=== PATIENT | male | born 1955 | race Caucasian/White ===

== ENCOUNTER → 2016-08-09 | Outpatient (CLI) | payer BC | END | disposition home or self-care (01) | LOC: LAB 15:27 | DX: N52.9 Male erectile dysfunction, unspecified (principal) | CPT/HCPCS: 36415; 83001; 83615; 84146; 84402; 84403 ==

== ENCOUNTER → 2016-09-09 | Outpatient (CLI) | payer BC | END | disposition home or self-care (01) | LOC: LAB 13:06 | DX: N52.9 Male erectile dysfunction, unspecified (principal) | CPT/HCPCS: 84402; 84403 ==

== ENCOUNTER → 2018-01-18 | Outpatient (CLI) | payer BC ==
[2018-01-18 07:05] LABS: Basophils # (auto) 0 uL; Eosinophils # (auto) 0.3 uL; Eosinophils % (auto) 5.7 % (0.0-7.0); Hematocrit 47.2 % (41.0-53.0); Hemoglobin 16.5 g/dL (13.5-17.5); Lymphocytes # (auto) 1.3 uL; Lymphocytes % (auto) 28.6 % (10.0-50.0); Mean Corpuscular Hemoglobin 31.7 pg (28.0-32.0); Mean Corpuscular Hgb Conc. 34.9 g/dL (32.0-36.0); Mean Corpuscular Volume 90.9 fL (80.0-100.0); Monocytes # (auto) 0.4 uL; Monocytes % (auto) 9.8 % (0.0-12.0); Neutrophils # (auto) 2.5 uL; Neutrophils % (auto) 54.9 % (37.0-80.0); Nucleated Red Blood Cells % 0.1 %; Platelet Count (auto) 171 10^3/uL (140-450); Red Blood Cells 5.19 10^6/uL (4.5-5.90); Red Cell Distribution Width 13.8 % (11.8-14.3); White Blood Cell 4.6 10^3/uL (4.4-10.8)
[2018-01-18 07:14] LABS: Albumin 3.7 g/dL (3.4-5.0); BUN/Creatinine Ratio 12.1; Bilirubin, Total 0.7 mg/dL (0.2-1.0); Calcium 8.7 mg/dL (8.5-10.1); Potassium 4.1 mmol/L (3.5-5.1); Total Protein 7.1 g/dL (6.4-8.2)
== END | disposition home or self-care (01) ==
LOC: LAB 06:40
PROVIDERS: ATTEND Physician Assistant
DX: Z12.5 Encounter for screening for malignant neoplasm of prostate (principal); E29.1 Testicular hypofunction; D22.9 Melanocytic nevi, unspecified; K21.9 Gastro-esophageal reflux disease without esophagitis
CPT/HCPCS: 36415; 80053; 80061; 84153; 84403; 85025

== ENCOUNTER → 2018-04-17 | Outpatient (CLI) | payer BC | END | disposition home or self-care (01) | LOC: LAB 11:00 | PROVIDERS: ATTEND Physician Assistant | DX: D22.9 Melanocytic nevi, unspecified (principal) ==

== ENCOUNTER → 2019-03-07 | Outpatient (CLI) | payer BC ==
[~2019-03-07] MED LIST: APIX5TAB PO; LEVO500T21 PO
[2019-03-07 14:58] LABS: Urine Bacteria NONE SEEN /hpf (None Seen); Urine Blood Negative /uL (Negative); Urine Mucus FEW (None Seen); Urine Specific Gravity 1.021 (1.001-1.035); Urine WBC <1 /hpf (0 - 3)
[2019-03-07 15:26] LABS: Amylase 45 U/L (25-115); Cholesterol 206 mg/dL (< 200); Lipase 85 U/L (73-393)
[2019-03-07 15:28] LABS: HDL Cholesterol 37 mg/dL (40-59); LDL Cholesterol 142 mg/dL (< 100); Triglycerides 356 mg/dL (< 150)
== END | disposition home or self-care (01) ==
LOC: LAB 14:15
PROVIDERS: ATTEND Internal Medicine
DX: I26.99 Other pulmonary embolism without acute cor pulmonale (principal); E78.5 Hyperlipidemia, unspecified; R13.19 Other dysphagia; K21.9 Gastro-esophageal reflux disease without esophagitis
CPT/HCPCS: 36415; 80061; 81001; 81241; 82150; 82306; 83690; 84153; 85613; 85670; 85705; 85732

== ENCOUNTER → 2019-03-12 | Outpatient (CLI) | payer BC | END | disposition home or self-care (01) | LOC: LAB 14:29 | PROVIDERS: ATTEND Internal Medicine | DX: E78.5 Hyperlipidemia, unspecified (principal); R13.19 Other dysphagia; I26.99 Other pulmonary embolism without acute cor pulmonale | CPT/HCPCS: 82270 ==

== ENCOUNTER → 2019-06-25 | Outpatient (CLI) | payer BC ==
[~2019-06-25] MED LIST changes: +ALBU0.084 NEB; +ALBUAER3 IN; +FLUT1INH6 IN; +MOME200A INH; +RABE20TA5 PO
[2019-06-25 08:35] LABS: Albumin 3.9 g/dL (3.4-5.0); Calcium 9.6 mg/dL (8.5-10.1); Potassium 4.6 mmol/L (3.5-5.1)
[2019-06-25 08:40] LABS: Bilirubin, Total 0.7 mg/dL (0.2-1.0); Total Protein 7.4 g/dL (6.4-8.2)
== END | disposition home or self-care (01) ==
LOC: LAB 07:36
PROVIDERS: ATTEND Internal Medicine
DX: E78.5 Hyperlipidemia, unspecified (principal); E55.9 Vitamin D deficiency, unspecified
CPT/HCPCS: 36415; 80053; 80061

== ENCOUNTER → 2019-06-28 | Day surgery (SDC) | payer BC ==
[2019-06-25 09:11] LABS: Basophils # (auto) 0 uL; Basophils % (auto) 0.6 % (0.0-2.0); Eosinophils # (auto) 0.3 uL; Eosinophils % (auto) 7.2 % (0.0-7.0); Hematocrit 50.8 % (41.0-53.0); Hemoglobin 17.5 g/dL (13.5-17.5); Lymphocytes # (auto) 1.3 uL; Lymphocytes % (auto) 28.6 % (10.0-50.0); Mean Corpuscular Hemoglobin 31.3 pg (28.0-32.0); Mean Corpuscular Hgb Conc. 34.3 g/dL (32.0-36.0); Mean Corpuscular Volume 91.1 fL (80.0-100.0); Monocytes # (auto) 0.5 uL; Monocytes % (auto) 10.2 % (0.0-12.0); Neutrophils # (auto) 2.4 uL; Neutrophils % (auto) 53.4 % (37.0-80.0); Nucleated Red Blood Cells % 0.3 %; Platelet Count (auto) 196 10^3/uL (140-450); Red Blood Cells 5.58 10^6/uL (4.5-5.90); Red Cell Distribution Width 13.3 % (11.8-14.3); White Blood Cell 4.5 10^3/uL (4.4-10.8)
[2019-06-25 09:16] LABS: INR 1.09 (0.9-1.15); Partial Thromboplastin Time 24.6 sec (23.64-32.05)
[~2019-06-28] VITALS: Ht 185.4 cm; Wt 95.3 kg
[~2019-06-28] MED LIST changes: +FLUMAZENIL 0.1 MG/ML INJ 10ML MDV IV ONE; -LEVO500T21 PO; +LIDOCAINE VISCOUS 2% 15ML UD ONE; +NALOXONE HCL 0.4 MG/ML VIAL ONE; +SODIUM CHLORIDE LOCK 10 ML ONE; +diphenhdrAMINE HCL 50 MG/1 ML VL ONE
[2019-06-28] MEDS: MIDAZOLAM HCL 5 MG/ML-1ML VIAL ONE ×3 (09:14→09:27)
[2019-06-28] MEDS: fentaNYL CITRATE 100 MCG/2 ML VL ONE ×3 (09:14→09:27)
[2019-06-28 10:21] VITALS: BP 114/71
== END | disposition home or self-care (01) ==
LOC: GI 08:06
PROVIDERS: ATTEND Internal Medicine Gastroenterology
DX: K63.5 Polyp of colon (principal); K29.50 Unspecified chronic gastritis without bleeding; K44.9 Diaphragmatic hernia without obstruction or gangrene; K64.8 Other hemorrhoids; J44.9 Chronic obstructive pulmonary disease, unspecified; Z79.01 Long term (current) use of anticoagulants; Z79.899 Other long term (current) drug therapy
CPT/HCPCS: 36415; 43239; 45378; 85025; 85610; 85730; 88305; 88342; J1200; J2250; J3010; J7030; 99152

== ENCOUNTER → 2019-07-16 | Outpatient (CLI) | payer BC ==
[~2019-07-16] MED LIST changes: -FLUMAZENIL 0.1 MG/ML INJ 10ML MDV IV ONE; -LIDOCAINE VISCOUS 2% 15ML UD ONE; -NALOXONE HCL 0.4 MG/ML VIAL ONE; -SODIUM CHLORIDE LOCK 10 ML ONE; -diphenhdrAMINE HCL 50 MG/1 ML VL ONE
[2019-07-16 09:26] LABS: Albumin 4.1 g/dL (3.4-5.0); Bilirubin, Direct 0.2 mg/dL (0-0.2); Bilirubin, Total 0.8 mg/dL (0.2-1.0); Total Protein 7.6 g/dL (6.4-8.2)
== END | disposition home or self-care (01) ==
LOC: LAB 08:24
PROVIDERS: ATTEND Internal Medicine
DX: E78.5 Hyperlipidemia, unspecified (principal)
CPT/HCPCS: 36415; 80076

== ENCOUNTER → 2019-08-20 | Outpatient (CLI) | payer BC ==
[2019-08-20 09:08] LABS: Albumin 3.8 g/dL (3.4-5.0)
[2019-08-20 09:14] LABS: Bilirubin, Direct 0.2 mg/dL (0-0.2); Bilirubin, Total 0.7 mg/dL (0.2-1.0); Total Protein 7.5 g/dL (6.4-8.2)
== END | disposition home or self-care (01) ==
LOC: LAB 07:59
PROVIDERS: ATTEND Internal Medicine
DX: E78.5 Hyperlipidemia, unspecified (principal)
CPT/HCPCS: 36415; 80061; 80076

== ENCOUNTER → 2019-10-17 | Outpatient (CLI) | payer BC ==
[2019-10-17 08:36] LABS: Leuteinizing Hormone 1.8 IU/L (1.5-9.3)
[2019-10-17 08:37] LABS: Follicle Stimulating Hormone 2.3 IU/L (1.4-18.1)
== END | disposition home or self-care (01) ==
LOC: LAB 07:32
PROVIDERS: ATTEND Internal Medicine
DX: N52.9 Male erectile dysfunction, unspecified (principal); R53.83 Other fatigue; R79.89 Other specified abnormal findings of blood chemistry
CPT/HCPCS: 36415; 82607; 83001; 83002; 83036; 84144; 84403; 84443

== ENCOUNTER → 2019-10-31 | Outpatient (CLI) | payer BC ==
[2019-10-31 09:31] LABS: Cholesterol 157 mg/dL (< 200); HDL Cholesterol 46 mg/dL (40-59); LDL Cholesterol 96 mg/dL (< 100); Triglycerides 157 mg/dL (< 150)
== END | disposition home or self-care (01) ==
LOC: LAB 07:09
PROVIDERS: ATTEND Internal Medicine
DX: E78.5 Hyperlipidemia, unspecified (principal); I26.99 Other pulmonary embolism without acute cor pulmonale
CPT/HCPCS: 36415; 80061; 81241; 84311; 85302; 85306; 85379

== ENCOUNTER → 2019-12-05 | Outpatient (CLI) | payer BC | END | disposition home or self-care (01) | LOC: LAB 14:38 | PROVIDERS: ATTEND Urology | DX: R97.20 Elevated prostate specific antigen [PSA] (principal) | CPT/HCPCS: 84154 ==

== ENCOUNTER → 2020-01-24 | Outpatient (CLI) | payer BC ==
[2020-01-24 08:10] LABS: Cholesterol 162 mg/dL (< 200); HDL Cholesterol 36 mg/dL (40-59); LDL Cholesterol 121 mg/dL (< 100); Triglycerides 106 mg/dL (< 150)
== END | disposition home or self-care (01) ==
LOC: LAB 07:04
PROVIDERS: ATTEND Internal Medicine
DX: E78.5 Hyperlipidemia, unspecified (principal)
CPT/HCPCS: 36415; 80061

== ENCOUNTER → 2020-01-29 | Outpatient (CLI) | payer BC | END | disposition home or self-care (01) | LOC: LAB 09:27 | PROVIDERS: ATTEND Urology | DX: E29.1 Testicular hypofunction (principal) | CPT/HCPCS: 36415; 84403 ==

== ENCOUNTER → 2020-02-13 | Outpatient (CLI) | payer BC ==
[2020-02-13 08:49] LABS: Albumin 3.8 g/dL (3.4-5.0); Bilirubin, Direct 0.2 mg/dL (0-0.2); Bilirubin, Total 0.8 mg/dL (0.2-1.0)
== END | disposition home or self-care (01) ==
LOC: LAB 07:50
PROVIDERS: ATTEND Internal Medicine
DX: E78.5 Hyperlipidemia, unspecified (principal); R73.03 Prediabetes
CPT/HCPCS: 36415; 80076

== ENCOUNTER → 2020-02-14 | Outpatient (CLI) | payer BC ==
[2020-02-14 09:00] LABS: Eosinophils # (auto) 0.2 10 ^3/uL (0-0.8); Hematocrit 53.5 % (41.0-53.0); Hemoglobin 17.9 g/dL (13.5-17.5); Lymphocytes # (auto) 1.1 10 ^3/uL (0.4-5.4); Mean Corpuscular Hgb Conc. 33.5 g/dL (32.0-36.0); Monocytes # (auto) 0.5 10 ^3/uL (0-1.3); Monocytes % (auto) 8.5 % (0.0-12.0); Platelet Count (auto) 151 10^3/uL (140-450)
[2020-02-14 09:02] LABS: Basophils # (auto) 0.1 10 ^3/uL (0-0.2); Basophils % (auto) 0.9 % (0.0-2.0); Lymphocytes % (auto) 19.3 % (10.0-50.0); Mean Corpuscular Volume 95.3 fL (80.0-100.0); Neutrophils % (auto) 68.3 % (37.0-80.0); Red Blood Cells 5.61 10^6/uL (4.5-5.90); Red Cell Distribution Width 13.8 % (11.8-14.3); White Blood Cell 5.9 10^3/uL (4.4-10.8)
[2020-02-14 09:22] LABS: Albumin 3.9 g/dL (3.4-5.0); Calcium 9.3 mg/dL (8.5-10.1)
[2020-02-14 09:27] LABS: BUN/Creatinine Ratio 10.2; Total Protein 7.3 g/dL (6.4-8.2)
[2020-02-14 09:29] LABS: Free T4 (Free Thyroxine) 1.02 ng/dL (0.89-1.76)
[2020-02-14 09:30] LABS: Free T3 3.49 pg/mL (2.3-4.2); Prostate Specific Antigen 1.91 ng/mL (0.0-4.0)
== END | disposition home or self-care (01) ==
LOC: LAB 08:40
DX: Z12.5 Encounter for screening for malignant neoplasm of prostate (principal); E07.89 Other specified disorders of thyroid; E34.9 Endocrine disorder, unspecified; E29.1 Testicular hypofunction
CPT/HCPCS: 36415; 80053; 80061; 82306; 82607; 82670; 84153; 84402; 84403; 84439; 84443; 84481; 85025; 86376

== ENCOUNTER → 2020-05-05 | Outpatient (CLI) | payer BC ==
[2020-05-05 08:18] LABS: Albumin 3.7 g/dL (3.4-5.0)
[2020-05-05 08:22] LABS: Bilirubin, Direct 0.2 mg/dL (0-0.2); Bilirubin, Total 0.9 mg/dL (0.2-1.0); Total Protein 7.1 g/dL (6.4-8.2)
== END | disposition home or self-care (01) ==
LOC: LAB 07:15
PROVIDERS: ATTEND Internal Medicine
DX: E78.5 Hyperlipidemia, unspecified (principal); R73.03 Prediabetes
CPT/HCPCS: 36415; 80061; 80076; 84403

== ENCOUNTER 2020-05-11 08:14 | Emergency (ER) | payer BC ==
[~2020-05-11] VITALS: Ht 185.4 cm; Wt 99.8 kg
[2020-05-11 08:20] VITALS: BP 149/79
[2020-05-11 09:00] LABS: Basophils # (auto) 0 10 ^3/uL (0-0.2); Basophils % (auto) 0.3 % (0.0-2.0); Eosinophils # (auto) 0.2 10 ^3/uL (0-0.8); Monocytes # (auto) 0.8 10 ^3/uL (0-1.3); Neutrophils # (auto) 4.6 10 ^3/uL (1.6-8.6); White Blood Cell 7.1 10^3/uL (4.4-10.8)
[2020-05-11] MEDS ORDERED: IOHEXOL 350 MG/ML 100ML IJ ONE (09:00)
[2020-05-11 09:02] LABS: Eosinophils % (auto) 3.1 % (0.0-7.0); Hemoglobin 19.6 g/dL (13.5-17.5); Lymphocytes # (auto) 1.4 10 ^3/uL (0.4-5.4); Lymphocytes % (auto) 20.4 % (10.0-50.0); Mean Corpuscular Hemoglobin 31.8 pg (28.0-32.0); Mean Corpuscular Hgb Conc. 34.2 g/dL (32.0-36.0); Monocytes % (auto) 10.8 % (0.0-12.0); Neutrophils % (auto) 65.4 % (37.0-80.0); Nucleated Red Blood Cells % 0.1 %; Platelet Count (auto) 158 10^3/uL (140-450); Red Blood Cells 6.16 10^6/uL (4.5-5.90); Red Cell Distribution Width 13.2 % (11.8-14.3)
[2020-05-11 09:18] LABS: Hematocrit 57.3 % (41.0-53.0)
[2020-05-11 09:25] LABS: Alanine Aminotransferase 33 U/L (16-61); Albumin 3.8 g/dL (3.4-5.0); Anion Gap 5 (5-15); Aspartate Aminotransferase 20 U/L (15-37); BUN/Creatinine Ratio 12.1; Bilirubin, Total 0.8 mg/dL (0.2-1.0); Blood Urea Nitrogen 15 mg/dL (7-18); Calcium 9.2 mg/dL (8.5-10.1); Carbon Dioxide 29 mmol/L (21-32); Chloride 104 mmol/L (98-107); GFR African American 76 mL/min; GFR Non-African American 63 mL/min; Glucose 79 mg/dL (74-106); Sodium 138 mmol/L (136-145); Total Protein 7.3 g/dL (6.4-8.2)
[2020-05-11 09:30] LABS: Alkaline Phosphatase 64 U/L (45-117)
== END 2020-05-11 13:13 | disposition left against medical advice (07) ==
LOC: ER 08:14
DX: R07.81 Pleurodynia (principal); J45.909 Unspecified asthma, uncomplicated; K21.9 Gastro-esophageal reflux disease without esophagitis
CPT/HCPCS: 36415; 71275; 80053; 84484; 85025; 93005; 99285; Q9967

== ENCOUNTER → 2020-06-23 | Outpatient (CLI) | payer BC ==
[2020-06-23 07:29] LABS: Basophils # (auto) 0 10 ^3/uL (0-0.2); Eosinophils # (auto) 0.3 10 ^3/uL (0-0.8); Hemoglobin 18.8 g/dL (13.5-17.5); Lymphocytes # (auto) 1.2 10 ^3/uL (0.4-5.4); Monocytes # (auto) 0.7 10 ^3/uL (0-1.3); Neutrophils # (auto) 3.4 10 ^3/uL (1.6-8.6); Red Cell Distribution Width 14.2 % (11.8-14.3); White Blood Cell 5.7 10^3/uL (4.4-10.8)
[2020-06-23 07:32] LABS: Basophils % (auto) 0.8 % (0.0-2.0); Hematocrit 53.7 % (41.0-53.0); Lymphocytes % (auto) 20.4 % (10.0-50.0); Mean Corpuscular Hemoglobin 32.3 pg (28.0-32.0); Mean Corpuscular Hgb Conc. 35.1 g/dL (32.0-36.0); Mean Corpuscular Volume 92.1 fL (80.0-100.0); Monocytes % (auto) 12.2 % (0.0-12.0); Neutrophils % (auto) 60.6 % (37.0-80.0); Nucleated Red Blood Cells % 0.1 %; Platelet Count (auto) 195 10^3/uL (140-450); Red Blood Cells 5.83 10^6/uL (4.5-5.90)
[2020-06-23 07:43] LABS: Albumin 3.5 g/dL (3.4-5.0)
[2020-06-23 07:48] LABS: Bilirubin, Direct 0.2 mg/dL (0-0.2); Bilirubin, Total 0.9 mg/dL (0.2-1.0); Total Protein 7.2 g/dL (6.4-8.2)
== END | disposition home or self-care (01) ==
LOC: LAB 07:06
PROVIDERS: ATTEND Internal Medicine
DX: E78.5 Hyperlipidemia, unspecified (principal); R73.03 Prediabetes
CPT/HCPCS: 36415; 80061; 80076; 84403; 85025

== ENCOUNTER → 2020-09-21 | Outpatient (CLI) | payer BC ==
[~2020-09-21] MED LIST changes: +RABE20TA19 PO; -RABE20TA5 PO
[2020-09-21 09:30] LABS: Albumin 3.6 g/dL (3.4-5.0)
[2020-09-21 09:35] LABS: Bilirubin, Direct 0.2 mg/dL (0-0.2); Bilirubin, Total 0.9 mg/dL (0.2-1.0)
== END | disposition home or self-care (01) ==
LOC: LAB 07:10
PROVIDERS: ATTEND Urology
DX: E29.1 Testicular hypofunction (principal); N52.9 Male erectile dysfunction, unspecified
CPT/HCPCS: 36415; 80076; 84153; 84403

== ENCOUNTER → 2020-11-23 | Outpatient (CLI) | payer BC ==
[2020-11-23 08:56] LABS: Cholesterol 125 mg/dL (< 200); HDL Cholesterol 36 mg/dL (40-59); LDL Cholesterol 80 mg/dL (< 100); Triglycerides 110 mg/dL (< 150)
== END | disposition home or self-care (01) ==
LOC: LAB 07:20
PROVIDERS: ATTEND Internal Medicine
DX: Z12.11 Encounter for screening for malignant neoplasm of colon (principal); E29.1 Testicular hypofunction; E34.9 Endocrine disorder, unspecified; R73.03 Prediabetes
CPT/HCPCS: 36415; 80061; 82043; 83036; 84403

== ENCOUNTER → 2020-11-27 | Outpatient (CLI) | payer BC | END | disposition home or self-care (01) | LOC: LAB 12:24 | PROVIDERS: ATTEND Internal Medicine | DX: Z12.11 Encounter for screening for malignant neoplasm of colon (principal); E29.1 Testicular hypofunction; E34.9 Endocrine disorder, unspecified; R73.03 Prediabetes | CPT/HCPCS: 82270 ==

== ENCOUNTER → 2020-12-23 | Outpatient (CLI) | payer BC | END | disposition home or self-care (01) | LOC: XYW 08:12 | PROVIDERS: ATTEND Internal Medicine | DX: R06.02 Shortness of breath (principal) | CPT/HCPCS: 93306 ==

== ENCOUNTER → 2021-01-21 | Outpatient (CLI) | payer BC | END | disposition home or self-care (01) | LOC: XY 08:23 | PROVIDERS: ATTEND Internal Medicine | DX: I10 Essential (primary) hypertension (principal); J45.909 Unspecified asthma, uncomplicated; G47.33 Obstructive sleep apnea (adult) (pediatric); R60.0 Localized edema; Z86.711 Personal history of pulmonary embolism | CPT/HCPCS: 78452; 93017; A9500 ==

== ENCOUNTER → 2021-03-26 | Outpatient (CLI) | payer BC ==
[~2021-03-26] MED LIST changes: +ATOR10TA PO; +FLUT0.05 NAS; +MONT5CHW23 PO
[2021-03-26 10:04] LABS: Basophils # (auto) 0 10 ^3/uL (0-0.2); Basophils % (auto) 0.9 % (0.0-2.0); Eosinophils # (auto) 0.2 10 ^3/uL (0-0.8); Mean Corpuscular Volume 92.9 fL (80.0-100.0); Neutrophils # (auto) 3.3 10 ^3/uL (1.6-8.6); Nucleated Red Blood Cells % 0.1 %; White Blood Cell 5.2 10^3/uL (4.4-10.8)
[2021-03-26 10:06] LABS: Eosinophils % (auto) 4.1 % (0.0-7.0); Hematocrit 53.1 % (41.0-53.0); Lymphocytes # (auto) 1.1 10 ^3/uL (0.4-5.4); Lymphocytes % (auto) 21.6 % (10.0-50.0); Mean Corpuscular Hemoglobin 31.6 pg (28.0-32.0); Monocytes # (auto) 0.6 10 ^3/uL (0-1.3); Monocytes % (auto) 10.7 % (0.0-12.0); Neutrophils % (auto) 62.7 % (37.0-80.0); Red Blood Cells 5.71 10^6/uL (4.5-5.90); Red Cell Distribution Width 13.6 % (11.8-14.3)
[2021-03-26 10:31] LABS: INR 1.14 (0.9-1.15); Partial Thromboplastin Time 24.2 sec (23.6-33.0)
[2021-03-26 13:31] LABS: Potassium 4.2 mmol/L (3.5-5.1)
[2021-03-26 13:58] LABS: Albumin 3.7 g/dL (3.4-5.0); BUN/Creatinine Ratio 7.8; Bilirubin, Total 0.8 mg/dL (0.2-1.0); Calcium 9.4 mg/dL (8.5-10.1)
== END | disposition home or self-care (01) ==
LOC: LAB 09:37
PROVIDERS: ATTEND Internal Medicine
DX: Z01.812 Encounter for preprocedural laboratory examination (principal)
CPT/HCPCS: 36415; 80053; 85025; 85610; 85730

== ENCOUNTER 2021-03-29 07:06 | Day surgery (SDC) | payer BC ==
[~2021-03-29] VITALS: Ht 185.4 cm; Wt 99.8 kg
[~2021-03-29 07:06] MED LIST changes: -ALBU0.084 NEB; -APIX5TAB PO; -FLUT1INH6 IN
[2021-03-29] MEDS ORDERED: IODIXANOL 320MG/ML 100ML BTL IV ONE (08:24)
[2021-03-29] MEDS ORDERED: LIDOCAINE 2%HCL (LOCAL ANESTH.) INJ 20ML MDV ONE (08:25)
[2021-03-29] MEDS ORDERED: ANGIOMAX 250 MG VIAL IV ONE (08:53)
[2021-03-29] MEDS ORDERED: MIDAZOLAM HCL 2MG/2ML 2ml VIAL (1mg/ml) ONE ×2 (08:54→09:11)
[2021-03-29] MEDS ORDERED: VERAPAMIL 2.5MG/ML INJ 2ML VIAL IV ONE (08:54)
[2021-03-29] MEDS ORDERED: fentaNYL CITRATE 100 MCG/2 ML VL ONE (08:54)
[2021-03-29] MEDS ORDERED: SODIUM CHL 0.9% 0 ML ONE (08:54)
[2021-03-29] MEDS ORDERED: HEPARIN SODIUM (PORCINE) 5000 UNITS/ML 1ML VIAL ONE (08:54)
[2021-03-29] MEDS ORDERED: ONDANSETRON HCL 4 MG/2 ML VIAL IV PRN (09:45)
[2021-03-29] MEDS ORDERED: HYDROcodone-ACET 5/325MG TAB PO PRN (09:45)
[2021-03-29] MEDS ORDERED: ACETAMINOPHEN 500 MG TAB PO PRN (09:45)
== END 2021-03-29 12:27 | disposition home or self-care (01) ==
LOC: CATH 07:06
PROVIDERS: ATTEND Internal Medicine
DX: R94.39 Abnormal result of other cardiovascular function study (principal); E78.00 Pure hypercholesterolemia, unspecified; J45.909 Unspecified asthma, uncomplicated; I26.99 Other pulmonary embolism without acute cor pulmonale; E78.5 Hyperlipidemia, unspecified; J44.9 Chronic obstructive pulmonary disease, unspecified; Z80.2 Family history of malignant neoplasm of other respiratory and intrathoracic organs; Z20.822 Contact with and (suspected) exposure to COVID-19
CPT/HCPCS: 93458; C1887; C1894; J1644; J2250; J3010; J7030; Q9967; U0003; 99152

== ENCOUNTER → 2021-05-27 | Outpatient (CLI) | payer BC | END | disposition home or self-care (01) | LOC: LAB 10:27 | PROVIDERS: ATTEND Internal Medicine Pulmonary Disease | DX: J44.9 Chronic obstructive pulmonary disease, unspecified (principal) | CPT/HCPCS: 82103 ==

== ENCOUNTER → 2021-07-27 | Outpatient (CLI) | payer BC ==
[2021-07-27 08:53] LABS: Albumin 3.6 g/dL (3.4-5.0); Potassium 3.9 mmol/L (3.5-5.1)
[2021-07-27 08:58] LABS: BUN/Creatinine Ratio 9.4; Bilirubin, Total 0.6 mg/dL (0.2-1.0); Total Protein 6.9 g/dL (6.4-8.2)
== END | disposition home or self-care (01) ==
LOC: LAB 07:01
PROVIDERS: ATTEND Internal Medicine
DX: N18.2 Chronic kidney disease, stage 2 (mild) (principal); R73.03 Prediabetes
CPT/HCPCS: 36415; 80053; 83036

== ENCOUNTER → 2021-10-18 | Outpatient (CLI) | payer BC ==
[2021-10-18 08:07] LABS: Cholesterol 131 mg/dL (< 200); HDL Cholesterol 36 mg/dL (40-59); LDL Cholesterol 83 mg/dL (< 100); Triglycerides 100 mg/dL (< 150)
== END | disposition home or self-care (01) ==
LOC: LAB 06:42
PROVIDERS: ATTEND Internal Medicine
DX: Z00.00 Encounter for general adult medical examination without abnormal findings (principal); E78.5 Hyperlipidemia, unspecified; J44.9 Chronic obstructive pulmonary disease, unspecified; R73.03 Prediabetes
CPT/HCPCS: 36415; 80061; 82043; 83036

== ENCOUNTER → 2021-12-06 | Outpatient (CLI) | payer BC ==
[2021-12-06 08:00] LABS: BUN/Creatinine Ratio 9.9
[2021-12-06 08:33] LABS: Folate (Folic Acid) > 24.00 ng/mL (5.38-24)
== END | disposition home or self-care (01) ==
LOC: LAB 06:35
PROVIDERS: ATTEND Internal Medicine
DX: E11.9 Type 2 diabetes mellitus without complications (principal); I10 Essential (primary) hypertension
CPT/HCPCS: 36415; 80048; 82746; 84155; 84165

== ENCOUNTER → 2021-12-29 | Outpatient (CLI) | payer BC | END | disposition home or self-care (01) | LOC: XY 09:45 | PROVIDERS: ATTEND Podiatrist | DX: I77.9 Disorder of arteries and arterioles, unspecified (principal) | CPT/HCPCS: 93925 ==

== ENCOUNTER → 2022-02-10 | Outpatient (CLI) | payer BC ==
[2022-02-10 08:02] LABS: Albumin 3.6 g/dL (3.4-5.0); Calcium 8.7 mg/dL (8.5-10.1); Potassium 3.7 mmol/L (3.5-5.1)
[2022-02-10 08:08] LABS: BUN/Creatinine Ratio 10.8; Bilirubin, Total 0.9 mg/dL (0.2-1.0); Total Protein 6.7 g/dL (6.4-8.2)
== END | disposition home or self-care (01) ==
LOC: LAB 07:15
PROVIDERS: ATTEND Internal Medicine
DX: E78.5 Hyperlipidemia, unspecified (principal); R73.03 Prediabetes
CPT/HCPCS: 36415; 80053; 80061; 83036

== ENCOUNTER → 2022-08-12 | Outpatient (CLI) | payer BC ==
[2022-08-12 09:25] LABS: Cholesterol 137 mg/dL (< 200); HDL Cholesterol 43 mg/dL (40-59); LDL Cholesterol 91 mg/dL (< 100); Triglycerides 103 mg/dL (< 150)
== END | disposition home or self-care (01) ==
LOC: LAB 07:46
PROVIDERS: ATTEND Internal Medicine
DX: R73.03 Prediabetes (principal); J44.9 Chronic obstructive pulmonary disease, unspecified; E78.5 Hyperlipidemia, unspecified
CPT/HCPCS: 36415; 80061; 82270; 83036; 84153

== ENCOUNTER → 2022-12-08 | Outpatient (CLI) | payer BC ==
[~2022-12-08] MED LIST changes: +MOME1AER3 INH; -MOME200A INH; +MONT5CHW12 PO; -MONT5CHW23 PO
[2022-12-08 08:19] LABS: Cholesterol 114 mg/dL (< 200)
[2022-12-08 08:22] LABS: HDL Cholesterol 37 mg/dL (40-59); LDL Cholesterol 74 mg/dL (< 100); Triglycerides 109 mg/dL (< 150)
== END | disposition home or self-care (01) ==
LOC: LAB 07:42
PROVIDERS: ATTEND Internal Medicine
DX: I10 Essential (primary) hypertension (principal); R73.03 Prediabetes
CPT/HCPCS: 36415; 80061; 83036

== ENCOUNTER → 2023-03-20 | Outpatient (CLI) | payer BC ==
[2023-03-20 10:44] LABS: Anion Gap 7 (5-15); Carbon Dioxide 29 mmol/L (20-30); Chloride 104 mmol/L (98-107); Potassium 4.5 mmol/L (3.5-5.1); Sodium 140 mmol/L (136-145)
[2023-03-20 10:46] LABS: Calcium 9.7 mg/dL (8.5-10.1)
[2023-03-20 10:48] LABS: Creatinine, Urine 42.54 mg/dL (30.0-125.0)
[2023-03-20 10:50] LABS: BUN/Creatinine Ratio 9.8 (10.0-20.0); Blood Urea Nitrogen 12 mg/dL (9-23); Glucose 99 mg/dL (74-106)
[2023-03-20 10:51] LABS: Micro Albumin < 3.0 mg/L (<30.0)
== END | disposition home or self-care (01) ==
LOC: LAB 10:03
PROVIDERS: ATTEND Internal Medicine
DX: R73.03 Prediabetes (principal); E78.5 Hyperlipidemia, unspecified; E34.9 Endocrine disorder, unspecified; J44.9 Chronic obstructive pulmonary disease, unspecified
CPT/HCPCS: 36415; 80048; 82043; 82570; 83036; 84403

== ENCOUNTER → 2023-06-23 | Outpatient (CLI) | payer OTHER ==
[2023-06-23 07:30] LABS: Triglycerides 69 mg/dL (< 150)
[2023-06-23 07:31] LABS: LDL Cholesterol 85 mg/dL (< 100)
[2023-06-23 07:32] LABS: Cholesterol 124 mg/dL (< 200); HDL Cholesterol 36 mg/dL (40-59)
== END | disposition home or self-care (01) ==
LOC: LAB 06:45
PROVIDERS: ATTEND Internal Medicine
DX: N52.9 Male erectile dysfunction, unspecified (principal); E78.5 Hyperlipidemia, unspecified; R73.03 Prediabetes
CPT/HCPCS: 36415; 80061; 84403

== ENCOUNTER → 2024-02-06 | Outpatient (CLI) | payer OTHER ==
[2024-02-06 08:00] LABS: Creatinine, Urine 119.17 mg/dL (30.0-125.0)
[2024-02-06 08:02] LABS: Micro Albumin < 3.0 mg/L (<30.0)
== END | disposition home or self-care (01) ==
LOC: LAB 07:05
PROVIDERS: ATTEND Internal Medicine
DX: R73.03 Prediabetes (principal); E04.1 Nontoxic single thyroid nodule; Z79.899 Other long term (current) drug therapy
CPT/HCPCS: 36415; 82043; 82306; 82570; 83036; 84153; 84443

== ENCOUNTER 2024-04-05 10:05 | Day surgery (SDC) | payer OTHER ==
[2024-04-04 07:31] LABS: Alanine Aminotransferase 26 U/L (7-40); Albumin 4.7 g/dL (3.2-4.8); Alkaline Phosphatase 84 U/L (46-116); Anion Gap 6 (5-15); Aspartate Aminotransferase 13 U/L (13-40); BUN/Creatinine Ratio 11.8 (10.0-20.0); Bilirubin, Total 0.6 mg/dL (0.2-1.0); Blood Urea Nitrogen 14 mg/dL (9-23); Calcium 9.8 mg/dL (8.7-10.4); Carbon Dioxide 28 mmol/L (20-31); Chloride 107 mmol/L (98-107); Glucose 99 mg/dL (74-106); Sodium 141 mmol/L (136-145); Total Protein 7.2 g/dL (5.7-8.2)
[2024-04-04 07:34] LABS: INR 1.1 (0.9-1.15); Partial Thromboplastin Time 25.1 SEC (24.5-34.5); Prothrombin Time 11.6 sec (9.3-11.8)
[2024-04-04 07:40] LABS: Basophils # (auto) 0 10 ^3/uL (0-0.2); Basophils % (auto) 0.6 % (0.0-2.0); Eosinophils # (auto) 0.2 10 ^3/uL (0-0.8); Eosinophils % (auto) 3.2 % (0.0-7.0); Hematocrit 46.2 % (41.0-53.0); Lymphocytes # (auto) 1.5 10 ^3/uL (0.4-5.4); Lymphocytes % (auto) 20.5 % (10.0-50.0); Mean Corpuscular Hemoglobin 31.1 pg (28.0-32.0); Mean Corpuscular Hgb Conc. 34.7 g/dL (32.0-36.0); Mean Corpuscular Volume 89.6 fL (80.0-100.0); Monocytes # (auto) 0.6 10 ^3/uL (0-1.3); Monocytes % (auto) 7.9 % (0.0-12.0); Neutrophils # (auto) 5.1 10 ^3/uL (1.6-8.6); Neutrophils % (auto) 67.8 % (37.0-80.0); Nucleated Red Blood Cells % 0.1 %; Platelet Count (auto) 160 10^3/uL (140-450); Red Blood Cells 5.16 10^6/uL (4.5-5.90); Red Cell Distribution Width 15.9 % (11.8-14.3); White Blood Cell 7.6 10^3/uL (4.4-10.8)
[~2024-04-05] VITALS: Ht 185.4 cm; Wt 102.1 kg
[~2024-04-05 10:05] MED LIST changes: -ATOR10TA PO; +ATOR20TA50 PO; +FLUT1AER17 IN; +LOSA100T25 PO; -MOME1AER3 INH
[2024-04-05] MEDS ORDERED: LIDOCAINE VISCOUS 2% 15ML UD ONE (10:40)
[2024-04-05] MEDS ORDERED: MIDAZOLAM HCL 5 MG/ML-1ML VIAL ONE (10:41)
[2024-04-05] MEDS ORDERED: SODIUM CHLORIDE LOCK 0 ML ONE (10:41)
[2024-04-05] MEDS ORDERED: diphenhdrAMINE HCL 50 MG/1 ML VL ONE (10:41)
[2024-04-05] MEDS ORDERED: fentaNYL CITRATE 100 MCG/2 ML VL ONE ×2 (10:41→11:51)
[2024-04-05] MEDS ORDERED: ONDANSETRON HCL 4 MG/2 ML VIAL IV ONE (11:45)
[2024-04-05] MEDS: BENZOCAINE (DENTAL)20% 1 SPR SPRAY MT ONE (11:50)
[2024-04-05] MEDS ORDERED: KETAMINE 50mg/ML 1ml syringe ONE (11:51)
[2024-04-05] MEDS ORDERED: MIDAZOLAM HCL 2MG/2ML 2ml VIAL (1mg/ml) ONE (11:51)
[2024-04-05 12:09] VITALS: PULSE 66; RESP 9; O2SAT 100
[2024-04-05] MEDS ORDERED: PROPOFOL 10 MG/ML 20 ML IV ONE (12:09)
[2024-04-05 12:10] VITALS: TEMP 97.6
[2024-04-05] MEDS ORDERED: ONDANSETRON HCL 4 MG/2 ML VIAL ONE (12:12)
--- NOTE | 2024-04-05 12:19 | DVHOP2 ---
Operative Report DATE OF OPERATION: 04/05/24 PROCEDURE: Upper Endoscopy with biopsy, snare polypectomy and dilate esophagus unguided. PREOPERATIVE INDICATION: The patient is a 68 -year-old male undergoing endoscopy for oropharyngeal dysphagia, history of hiatal hernia and gastric polyps POSTOPERATIVE DIAGNOSES: 1. 3 cm sliding-type hiatal hernia with slightly irregular squamocolumnar junction minimal grade a erosive esophagitis dilated with Allen number 48 2. Mild antral gastritis 3. Two less than 1 cm benign-appearing gastric polyps were seen and removed via cold snare polypectomy PROCEDURE PERFORMED BY: Virginia Lopez GI NURSE: Ty SCOPE: Olympus videoendoscope. ASA CLASS: 2. PREOPERATIVE MEDICATIONS: Dr. Cynthia Hardin PROCEDURE IN DETAIL: After obtaining an informed consent, the patient was placed on left lateral decubitus position. The patient was then sedated with the above medications. A bite block was placed between his teeth. The endoscope was then passed through the oropharynx, into the esophagus, and through the stomach and pylorus up to the second and third part of the duodenum. The endoscope was then withdrawn. The 2nd and 3rd part of the duodenal in the duodenal bulb were normal. The pre- pyloric area and antrum showed mild antral gastritis. On retroflexion the fundus cardia and angularis were normal. Duodenal and gastric biopsies were obtained. The endoscope was then withdrawn into the distal esophagus where the patient had a 3-4 cm sliding-type hiatal hernia with grade a erosive esophagitis. The remaining distal and proximal esophagus and oropharynx were unremarkable. The endoscope was then withdrawn. A Allen dilator number 48 was passed through the distal esophagus with no significant resistance. Repeat endoscopy confirmed adequate dilatation with minimal mucosal oozing at the GE junction. GE junction biopsies were obtained. In the cardia of the stomach there were two less than 1 cm benign-appearing gastric polyps that were seen and removed by cold snare polypectomy and the specimens were retrieved. The patient tolerated the procedure well without difficulty. COMPLICATIONS : None SPECIMENS: Duodenal biopsies Gastric biopsies GE junction biopsies Gastric polyps DISPOSITION: Stable D/C to home PLAN: 1. Await for biopsy result 2. Will place pt on Protonix 40 mg p.o. daily 3. Resume GI soft diet advance as tolerated 4. Hold aspirin NSAIDs blood thinners for five days 5. Outpatient follow up with me in 4-6 weeks to review results and discuss further management VIRGINIA LOPEZ MD Apr 05, 2024 12:18
[2024-04-05 12:40] VITALS: BP 129/75; PULSE 65; RESP 12; O2SAT 96
[2024-04-26] MEDS ORDERED: RIV20T PO (08:28)
== END 2024-04-05 12:51 | disposition home or self-care (01) ==
LOC: GI 10:05
PROVIDERS: ATTEND Internal Medicine Gastroenterology
DX: R13.12 Dysphagia, oropharyngeal phase (principal); K31.7 Polyp of stomach and duodenum; K44.9 Diaphragmatic hernia without obstruction or gangrene; K29.50 Unspecified chronic gastritis without bleeding; I10 Essential (primary) hypertension; J44.9 Chronic obstructive pulmonary disease, unspecified; Z86.711 Personal history of pulmonary embolism
CPT/HCPCS: 36415; 43239; 43251; 43450; 80053; 85025; 85610; 85730; 88305; 88312; 88342; J2250; J2405; J2704; J3010; J7030

== ENCOUNTER 2024-04-24 17:14 | Inpatient (IN) | payer OTHER ==
[~2024-04-24] VITALS: Ht 185.4 cm; Wt 105.7 kg
[~2024-04-24 17:14] MED LIST changes: -CEPH500C PO; -DOXY-267 PO; -EZET-10; -IBUP1TAB5 PO
--- NOTE | 2024-04-24 17:42 | ED.PDOC ---
SOB-HPI HPI Comments HPI:HPI: Poor Historian. 68-year-old male presents with a chief complaint of SOB x onset Monday. Patient mentions that he went to Urgent Care on Monday and had a chest x-ray and was told that "I have collapsed lungs". Patient reports that sent him home and told him to follow-up with Dr. Whiting his primary care doctor. Dr. Whiting scheduled a CT Angiogram that was performed today, 04/24/2024, that resulted in a critical finding that he had Bilateral Pulmonary Emboli. Patient reports that Dr. Whiting instructed him to go to the ER. Patient right now states that he has no chest pain, but does feel "like I can't catch my breath". Patient is able to speak in full sentences. Patient denies any usage of blood thinners. PMHx: HTN, COPD, Asthma, GERD, PE PSHx: None Allergies: Food Allergies Initial Vital Signs: BP: 155/77 HR: 81 Temp: 99.4F SpO2: 96% RR: 18 REVIEW OF SYSTEMS: CONSTITUTIONAL: Denies acute: fever, diaphoresis, chills, HEAD: Denies acute: headache, photophobia Eyes: Denies acute: Double vision, vision loss, eye pain, eye discharge. EARS: Denies acute: tinnitus, hearing loss, ear discharge, ear pain, THROAT: Denies acute: sore throat, swelling, difficulty swallowing , pain with swallowing, change in voice. NECK: Denies acute: neck pain, neck swelling, stiff neck. HEART: Denies acute : chest pain, palpitations, LUNGS: Denies acute: wheezing, cough, hemoptysis ABDOMEN: Denies acute: abdominal pain, Nausea, Vomiting, diarrhea, melena , hematemesis, hematochezia SKIN: Denies acute: rash, redness, lesions, itchiness. EXTREMITIES: Denies acute: calf pain, numbness, tingling, weakness, denies pain in extremity. Denies acute: Low back pain. Neuro: Denies acute: focal neurological deficit, motor or sensory focal neurological deficit, tremors, seizure like activity, confusion, dizziness, change in mental status, loss of bowel or bladder function, cauda equina like symptoms. : Denies acute: dysuria, hematuria, flank pain, increase in urinary frequency. PSYCH: Denies acute: hallucination, suicidal ideation, homicidal ideation. PHYSICAL EXAM: General: no acute distress, awake and alert. Head: normocephalic, atraumatic. Neck: supple, trachea is midline, no swelling. Throat: Normal phonation. Eyes:, no erythema, no purulent discharge, no proptosis, no icterus. Heart: regular rate, regular rhythm, no significant murmur appreciated. Lungs: no apparent respiratory distress, Able to speak in full sentences. No wheezing, no rhonchi, no crackles. No stridors Clear to auscultation bilaterally. Abdomen: non tender to palpation, non distended, soft, no guarding, no rebound, + bowel sounds. Neuro: Awake, Alert, oriented to name, self, situation, follows commands GCS=15. Speech is normal. Skin: no petechia, no purpura, no cyanosis, non-pale, not jaundice. Lower extremities: --no - Pitting edema no deformity, no focal swelling, no calf TTP. Makes eye contact. moves all four extremities. Face: no apparent facial droop. Ambulating in the ED independently. Chief Complaint: Abnormal LAB's Time Seen by MD: 17:37 Primary Care Provider: JOHANNE Reviewed notes: Medications, Allergies Information Source: Patient Mode of Arrival: Ambulatory Past Medical History PAST MEDICAL HISTORY: Asthma, COPD, GERD, HTN Surgical History: Denies all surgeries Family History Family History: No family hx of HTN Social History Smoker: Non-Smoker Alcohol: Denies ETOH Use Drugs: Denies Drug Use Lives In: Home Was a procedure done? Was a procedure done?: No Differential Dx Differential Diagnosis: Other (DDx include ACS, unstable angina, anxiety, PE, pneumothroax, neoplasm, cardiac ischemia, COPD, asthma, CHF, pleural effusion, tobacco abuse, pneumonia, hypoxia, hypercapnia, anemia., infection/sepsis., pulmonary edema. Asthma, Cardiac tamponade, infection.) X-Ray, Labs, Meds, VS Vital Signs Date Time Temp Pulse Resp B/P (MAP) Pulse Ox O2 Delivery O2 Flow Rate FiO2 04/24/24 19:33 73 14 95 Room Air* 0 21 04/24/24 19:32 97.8 73 14 129/76 (93) 95 97.8 04/24/24 18:30 73 12 95 Room Air* 0 21 04/24/24 18:30 73 12 142/83 (102) 95 04/24/24 18:29 70 04/24/24 17:20 99.4 81 18 155/77 (103) 96 Lab Test 04/24/24 19:27 04/24/24 18:27 04/24/24 18:07 Range/Units Urine Color Light-yellow Yellow Urine Clarity Clear Clear Urine pH 6.0 5.0-9.0 Urine Specific [place] 1.047 H 1.001-1.035 Urine Protein Negative Negative Urine Ketones Negative Negative Urine Blood Negative Negative /uL Urine Nitrite Negative Negative Urine Bilirubin Negative Negative Urine Urobilinogen Normal Negative mg/dL Urine Leukocyte Esterase Negative Negative /uL Urine RBC <1 0 - 3 /hpf Urine WBC 1 0 - 3 /hpf Urine Squamous Epithelial Cells Few <5 /hpf Urine Bacteria None seen None Seen /hpf Urine Glucose Normal Normal mg/dL Lactic Acid Level 1.4 0.4-2.0 mmol/L White Blood Count 5.6 4.4-10.8 10^3/uL Red Blood Count 4.85 4.5-5.90 10^6/uL Hemoglobin 14.7 13.5-17.5 g/dL Hematocrit 43.6 41.0-53.0 % Mean Corpuscular Volume 89.9 80.0-100.0 fL Mean Corpuscular Hemoglobin 30.4 28.0-32.0 pg Mean Corpuscular Hemoglobin Concent 33.8 32.0-36.0 g/dL Red Cell Distribution Width 15.1 H 11.8-14.3 % Platelet Count 228 140-450 10^3/uL Mean Platelet Volume 8.6 6.9-10.8 fL Neutrophils (%) (Auto) 60.5 37.0-80.0 % Lymphocytes (%) (Auto) 25.7 10.0-50.0 % Monocytes (%) (Auto) 9.4 0.0-12.0 % Eosinophils (%) (Auto) 3.7 0.0-7.0 % Basophils (%) (Auto) 0.7 0.0-2.0 % Neutrophils # (Auto) 3.4 1.6-8.6 10 ^3/uL Lymphocytes # (Auto) 1.4 0.4-5.4 10 ^3/uL Monocytes # (Auto) 0.5 0-1.3 10 ^3/uL Eosinophils # (Auto) 0.2 0-0.8 10 ^3/uL Basophils # (Auto) 0 0-0.2 10 ^3/uL Nucleated Red Blood Cells 0.1 % Prothrombin Time 12.3 H 9.3-11.8 sec Prothrombin Time INR 1.17 H 0.9-1.15 Activated Partial Thromboplast Time 27.6 24.5-34.5 SEC Sodium Level 141 136-145 mmol/L Potassium Level 4.3 3.5-5.1 mmol/L Chloride Level 106 98-107 mmol/L Carbon Dioxide Level 30 20-31 mmol/L Anion Gap 5 5-15 Blood Urea Nitrogen 15 9-23 mg/dL Creatinine 1.17 0.700-1.30 mg/dL Glomerular Filtration Rate Calc 69 >90 mL/min BUN/Creatinine Ratio 12.8 10.0-20.0 Serum Glucose 106 74-106 mg/dL Calcium Level 9.7 8.7-10.4 mg/dL Magnesium Level 2.4 1.6-2.6 mg/dL Total Bilirubin 0.4 0.2-1.0 mg/dL Aspartate Amino Transferase (AST) 13 13-40 U/L Alanine Aminotransferase (ALT) 19 7-40 U/L Alkaline Phosphatase 79 46-116 U/L Troponin I High Sensitivity < 3 L </=54 ng/L B-Type Natriuretic Peptide 73.25 0-100 pg/mL Total Protein 7.2 5.7-8.2 g/dL Albumin 4.4 3.2-4.8 g/dL Current Medications Medications (Trade) Dose Ordered Sig/Niall Route Start Time Stop Time Status Last Admin Enoxaparin Sodium (Lovenox) 110 mg ONCE ONCE SC 04/24/24 18:00 04/24/24 18:01 DC 04/24/24 19:[address] [address] Ph: [phone] DIAGNOSTIC IMAGING Diagnostic Imaging Report : [id number] Signed PATIENT: ROMEO LOPEZ ACCT: [id number] UNIT: [id number] : 1955 LOC: [facility] ROOM / BED: / AGE / SEX: 68 / M ADM STATUS: REG CLI SERVICE [id number] ORDERING PHYSICIAN: LAURA WHITING MD PROCEDURE(s): CTACH - CT ANGIO CHEST CONTRAST REASON: SOB ORDER NUMBER(s): [id number], ACCESSION NUMBER(s): [id number] CTA Chest with intravenous contrast INDICATION: SOB COMPARISON: CT CHEST WITHOUT CONTRAST on DOS: 07/21/23 TECHNIQUE: Multidetector spiral CTA of the chest was performed of the chest with intravenous contrast. PULMONARY ANGIOGRAPHY PROTOCOL was utilized using a bolus- tracking technique centered on the main pulmonary artery. Axial, coronal and sagittal multiplanar and MIP reformats were performed. Radiation dose : Chest: CTDI volume is 45 mGy. Dose-length product is 1126 mGy*cm The dose indicators for CT are the volume computed Tomography (CT) dose Index (CTDIvol) and the dose Length product (DLP), and are measured in units of mGy and mGy-cm, respectively. These indicators are not patient dose, but values generated from the CT scanner acquisition factors. The report includes radiation exposure data for exposures received during this examination. Findings: Pulmonary artery: There are filling defects in segmental and segmental branches bilaterally consistent with acute pulmonary embolus. Clot burden is [id number]. Lower neck: Normal thyroid. Lungs: There is ground glass and nodular opacity in the left upper lung. There is atelectasis scarring in the lung bases. Heart/Vascular Structures: Normal heart size. No pericardial effusion. Lymph Nodes: No adenopathy Pleura: Small left pleural effusion. Musculoskeletal: No acute osseous abnormality. Soft tissues: Normal. Upper abdomen: Hepatic cysts noted. IMPRESSION: 1. Acute pulmonary embolism bilaterally. [id number] clot burden. No evidence of right heart strain. 2. Ground glass and nodular opacity in the left upper lung could represent pulmonary infarct. Small left pleural effusion. By basilar atelectasis and scarring. Hepatic cysts. Critical Result: Pumonary Emboli Findings discussed with LAURA WHITING at 04/24/2024 03:53 PM, and acknowledged receipt and understanding of the findings. HS:Y ATED BY: FUAD LEMON MD DICTATED DATE/TIME: 04/24/24 1553 SIGNED BY: FUAD LEMNO MD SIGNED DATE/TIME: 04/24/24 1553 [facility] [address] [address] [address] Ph: [phone] DIAGNOSTIC IMAGING Diagnostic Imaging Report : [id number] Signed PATIENT: ROMEO LOPEZ ACCT: [id number] UNIT: [id number] : 1955 LOC: ER ROOM / BED: / AGE / SEX: 68 / M ADM STATUS: REG ER SERVICE 174 ORDERING PHYSICIAN: EVAN PRATT DO PROCEDURE(s): CXRP - CHEST PORTABLE REASON: sob ORDER NUMBER(s): [id number], ACCESSION NUMBER(s): [id number] CHEST RADIOGRAPH Indication:sob Technique: Single frontal view of the chest was obtained Comparison: None FINDINGS: Lines and Tubes: None Lungs: No focal consolidation. Pleura: No effusion. No pneumothorax. Cardiomediastinal contours: Unremarkable Bones: No acute osseous abnormality. IMPRESSION: No acute cardiopulmonary disease. ATED BY: SOUTH CASTELLANOS DO DICTATED DATE/TIME: 04/24/241800 SIGNED BY: SOUTH CASTELLANOS DO SIGNED DATE/TIME: 04/24/241800 Time of 1ST Reevaluation: 18:07 Reevaluation 1ST: Unchanged Time of 2ND Reevaluation: 18:06 (The case was discussed with the cardiology team for thrombectomy (HPI, physical exam, labs and diagnostic tests that were available at the time of disposition, ED course, treatment plan) on the phone. They agreed to follow up with the patient in consult tomorrow. Dr. Baptiste. ) Patient Education/Counseling: Diagnosis, Treatment Family Education/Counseling: No Family Present Comments Patient presented with the above HPI.--dyspnea----workup was initiated. patient was found with the above mentioned diagnosis. Patient was given: Lovenox for PE Patient ED course and VS have been stabilized. Patient has been reassessed in the ED and remained in a stable condition. Patient/family voices understanding and is agreeable with plan. Patient has been observed in the ED adequate length of time to insure improvement/stability. patient was admitted to the medicine team for further evaluation and treatment of their presentation. Cardiology was consulted for possible thrombectomy. All the reports of any imaging studies that were ordered by myself were reviewed by myself. Departure 1 Departure Time of Disposition: 17:51 Impression: Primary Impression: Bilateral pulmonary embolism Disposition: ADMITTED INPATIENT Admit to: Tele Condition: Guarded Discharged With: Self Critical Care Note Critical Care Time?: Yes (35 min-critical care time only) Heart Score Heart Score: Heart Score Response (Comments) Value History Slightly Suspicious 0 EKG Normal 0 Age >65 2 Risk Factors 1 or 2 risk factors 1 Troponin Normal limit 0 Total 3 I personally scribed for EVAN PRATT DO ([email or web address]) on 04/24/24 at 17:42. Electronically submitted by Chong Perez ([email or web address]). I personally scribed for EVAN PRATT DO ([email or web address]) on 04/24/24 at 17:46. Electronically submitted by Chong Perez ([email or web address]). I personally scribed for EVAN PRATT DO ([email or web address]) on 04/24/24 at 18:03. Electronically submitted by Chong Perez ([email or web address]). I personally scribed for EVAN PRATT DO ([email or web address]) on 04/24/24 at 19:46. Electronically submitted by Chong Perez ([email or web address]). EVAN PRATT DO Apr 24, 2024 17:42
--- NOTE | 2024-04-24 18:03 | DVH ---
CHEST RADIOGRAPH Indication:sob Technique: Single frontal view of the chest was obtained Comparison: None FINDINGS: Lines and Tubes: None Lungs: No focal consolidation. Pleura: No effusion. No pneumothorax. Cardiomediastinal contours: Unremarkable Bones: No acute osseous abnormality. IMPRESSION: No acute cardiopulmonary disease.
[2024-04-24 18:30] VITALS: PULSE 73; RESP 12; O2SAT 95
[2024-04-24 18:57] LABS: Basophils # (auto) 0 10 ^3/uL (0-0.2); Basophils % (auto) 0.7 % (0.0-2.0); Eosinophils # (auto) 0.2 10 ^3/uL (0-0.8); Eosinophils % (auto) 3.7 % (0.0-7.0); Hematocrit 43.6 % (41.0-53.0); Hemoglobin 14.7 g/dL (13.5-17.5); Lymphocytes # (auto) 1.4 10 ^3/uL (0.4-5.4); Lymphocytes % (auto) 25.7 % (10.0-50.0); Mean Corpuscular Hemoglobin 30.4 pg (28.0-32.0); Mean Corpuscular Hgb Conc. 33.8 g/dL (32.0-36.0); Mean Corpuscular Volume 89.9 fL (80.0-100.0); Monocytes # (auto) 0.5 10 ^3/uL (0-1.3); Monocytes % (auto) 9.4 % (0.0-12.0); Neutrophils # (auto) 3.4 10 ^3/uL (1.6-8.6); Neutrophils % (auto) 60.5 % (37.0-80.0); Nucleated Red Blood Cells % 0.1 %; Platelet Count (auto) 228 10^3/uL (140-450); Red Blood Cells 4.85 10^6/uL (4.5-5.90); Red Cell Distribution Width 15.1 % (11.8-14.3); White Blood Cell 5.6 10^3/uL (4.4-10.8)
[2024-04-24] MEDS: ENOXAPARIN SOD 100 MG/1 ML SYRINGE SC ONE (19:02)
[2024-04-24 19:15] LABS: INR 1.17 (0.9-1.15); Partial Thromboplastin Time 27.6 SEC (24.5-34.5); Prothrombin Time 12.3 sec (9.3-11.8)
[2024-04-24 19:17] LABS: Alanine Aminotransferase 19 U/L (7-40); Albumin 4.4 g/dL (3.2-4.8); Alkaline Phosphatase 79 U/L (46-116); Anion Gap 5 (5-15); Aspartate Aminotransferase 13 U/L (13-40); BUN/Creatinine Ratio 12.8 (10.0-20.0); Bilirubin, Total 0.4 mg/dL (0.2-1.0); Blood Urea Nitrogen 15 mg/dL (9-23); Calcium 9.7 mg/dL (8.7-10.4); Carbon Dioxide 30 mmol/L (20-31); Chloride 106 mmol/L (98-107); Glucose 106 mg/dL (74-106); Magnesium 2.4 mg/dL (1.6-2.6); Potassium 4.3 mmol/L (3.5-5.1); Sodium 141 mmol/L (136-145)
[2024-04-24 19:18] LABS: Total Protein 7.2 g/dL (5.7-8.2)
[2024-04-24 19:29] LABS: Urine Bacteria None Seen /hpf (None Seen)
[2024-04-24 19:33] VITALS: PULSE 73; RESP 14; O2SAT 95
[2024-04-24 19:38] LABS: Urine Blood Negative /uL (Negative); Urine Clarity Clear (Clear); Urine Color Light-Yellow (Yellow); Urine Protein, UAD Negative (Negative); Urine Specific Gravity 1.047 (1.001-1.035); Urine Urobilinogen Normal (Negative); Urine WBC 1 /hpf (0 - 3)
[2024-04-24] MEDS ORDERED: NITROGLYCERIN 0.4 MG SL TAB SL PRN (21:45)
[2024-04-24] MEDS ORDERED: MORPHINE SULFATE INJ 2 MG/ml SYRG IV PRN (21:45)
[2024-04-24] MEDS ORDERED: ACETAMINOPHEN 325 MG TAB PO PRN (21:45)
[2024-04-24] MEDS: SODIUM CHLORIDE 0.9% 1,000 ML IV SCH (21:45)
[2024-04-24] MEDS ORDERED: ONDANSETRON HCL 4 MG/2 ML VIAL IV PRN (21:45)
[2024-04-24] MEDS ORDERED: HYDROcodone-ACET 5/325MG TAB PO PRN (21:45)
[2024-04-24] MEDS ORDERED: HEPARIN SODIUM (PORCINE) 5000 UNITS/ML 1ML VIAL IV ONE (22:00)
[2024-04-24] MEDS ORDERED: HEPARIN DRIP/D5W 100UNITS/ML 250 ML IV SCH (22:00)
--- NOTE | 2024-04-24 22:02 | DVHHPRES ---
History of Present Illness Resident Creating Document: WASHINGTON HENDERSON RESIDENT History of Present Illness This is a 68-year-old male with past medical history of hypertension, COPD, PE presented to the ED with a chief complaint of shortness of breath started since prior to this admission. The patient states shortness of breath started last associated with chest pain especially in deep breathing and he went to urgent care and had a chest x-ray and was prescribed antibiotics for possible pneumonia and was advised to follow up with the PCP Dr. Tolbert. Dr. Toblert scheduled a CT Angiogram that was performed today, 04/24/2024, and revealed bilateral Pulmonary Emboli. Patient reports that Dr. Tolbert instructed him to go to the ER. He also mentioned he had recent traveling to few states of the 2 weeks ago and he drove continuous for more than 4000 miles. He also mentioned that he had history of previous PE developed after came back from the traveling. He denies chest pain, dizziness, diaphoresis, abdominal pain, nausea, vomiting or any change in bowel and bladder habit. Past Medical History Hypertension, COPD, PE Past Surgical History None Family History Family history significant for heart attack and lung cancer Smoke: No ALCOHOL: none Drugs: None Lives: with Family Review of Systems Constitutional: Yes: Weakness; No: Fever, Chills, Sweats, Malaise, Other Eyes: No: Pain, Vision change, Conjunctivae inflammation, Eyelid inflammation, Other, Redness ENT: No: Ear pain, Ear discharge, Nose pain, Nose discharge, Nose congestion, Mouth pain, Mouth swelling, Throat pain, Throat swelling, Other Respiratory: Cough, Dry, Shortness of breath; No: SOB with excertion, Wheezing, Hemoptysis, Pleuritic Pain, Sputum, Wheezing, Other Cardiovascular: Chest Pain; No: Palpitations, Orthopnea, Paroxysmal Noc. Dyspnea, Edema, Lt Headedness, Other Gastrointestinal: No: Nausea, Vomiting, Abdominal Pain, Diarrhea, Constipation, Melena, Hematochezia, Other Genitourinary: No Dysuria, No Frequency, No Incontinence, No Hematuria, No Retention, No Other Musculoskeletal: No: other, neck pain, shoulder pain, arm pain, back pain, hand pain, leg pain, foot pain Skin: No: Rash, Lesions, Jaundice, Bruising, Other Neurological: No: Weakness, Numbness, Incoordination, Change in speech, Confusion, Seizures, Other Allergies: Coded Allergies: NO KNOWN ALLERGIES (Unverified , 06/25/19) Medications Current Medications Medications Dose Ordered Sig/Niall Route Start Time Stop Time Status Last Admin Dose Admin Sodium Chloride 10 ml Q8HR IV 04/24/24 22:00 Sodium Chloride 1,000 ml @ 75 mls/hr [id number] IV 04/24/24 21:45 Acetaminophen 325 mg Q4HP PRN PO 04/24/24 21:45 Acetaminophen/ Hydrocodone Bitart 1 tab Q4HP PRN PO 04/24/24 21:45 Ondansetron HCl 4 mg Q4HP PRN IV 04/24/24 21:45 Nitroglycerin 0.4 mg Q5MINP PRN SL 04/24/24 21:45 Morphine Sulfate 2 mg Q30M PRN IV 04/24/24 21:45 Exam Vital Signs Vital Signs Date Time Temp Pulse Resp B/P (MAP) Pulse Ox O2 Delivery O2 Flow Rate FiO2 04/24/24 19:33 73 14 95 Room Air* 0 21 04/24/24 19:32 97.8 129/76 (93) 97.8 Exam Physical examination: General Appearance: Alert, Oriented X3, Cooperative, No acute distress HEENT: Atraumatic, PERRLA, EOMI, Mucous membrane moist/pink Respiratory: Clear to auscultation, Normal air movement Cardiovascular: Regular rate, Normal S1, Normal S2, No murmurs, no chest wall tenderness Abdominal: Normal bowel sounds, Soft, No tenderness, No hepatospenomegaly, No masses Extremities: No clubbing, No cyanosis, No edema, Normal pulses, No te nderness/swelling Skin: No rashes, No breakdown, No significant lesion Neuro: Normal gait, Normal speech, Strength at 5/5 X4 ext, Normal tone, Sensation intact. Psych/Mental Status: Mental status NL, Mood NL Labs/Xrays Labs Test 04/24/24 19:53 04/24/24 19:27 04/24/24 18:27 04/24/24 18:07 Range/Units Troponin I High Sensitivity < 3 L </=54 ng/L Urine Color Light-yellow Yellow Urine Clarity Clear Clear Urine pH 6.0 5.0-9.0 Urine Specific [place] 1.047 H 1.001-1.035 Urine Protein Negative Negative Urine Ketones Negative Negative Urine Blood Negative Negative /uL Urine Nitrite Negative Negative Urine Bilirubin Negative Negative Urine Urobilinogen Normal Negative mg/dL Urine Leukocyte Esterase Negative Negative /uL Urine RBC <1 0 - 3 /hpf Urine WBC 1 0 - 3 /hpf Urine Squamous Epithelial Cells Few <5 /hpf Urine Bacteria None seen None Seen /hpf Urine Glucose Normal Normal mg/dL Prothrombin Time 12.3 H 9.3-11.8 sec Prothrombin Time INR 1.17 H 0.9-1.15 Activated Partial Thromboplast Time 27.6 24.5-34.5 SEC Sodium Level 141 136-145 mmol/L Potassium Level 4.3 3.5-5.1 mmol/L Chloride Level 106 98-107 mmol/L Carbon Dioxide Level 30 20-31 mmol/L Anion Gap 5 5-15 Blood Urea Nitrogen 15 9-23 mg/dL Creatinine 1.17 0.700-1.30 mg/dL Glomerular Filtration Rate Calc 69 >90 mL/min BUN/Creatinine Ratio 12.8 10.0-20.0 Serum Glucose 106 74-106 mg/dL Lactic Acid Level 1.4 0.4-2.0 mmol/L Calcium Level 9.7 8.7-10.4 mg/dL Magnesium Level 2.4 1.6-2.6 mg/dL Total Bilirubin 0.4 0.2-1.0 mg/dL Aspartate Amino Transferase (AST) 13 13-40 U/L Alanine Aminotransferase (ALT) 19 7-40 U/L Alkaline Phosphatase 79 46-116 U/L B-Type Natriuretic Peptide 73.25 0-100 pg/mL Total Protein 7.2 5.7-8.2 g/dL Albumin 4.4 3.2-4.8 g/dL White Blood Count 5.6 4.4-10.8 10^3/uL Red Blood Count 4.85 4.5-5.90 10^6/uL Hemoglobin 14.7 13.5-17.5 g/dL Hematocrit 43.6 41.0-53.0 % Mean Corpuscular Volume 89.9 80.0-100.0 fL Mean Corpuscular Hemoglobin 30.4 28.0-32.0 pg Mean Corpuscular Hemoglobin Concent 33.8 32.0-36.0 g/dL Red Cell Distribution Width 15.1 H 11.8-14.3 % Platelet Count 228 140-450 10^3/uL Mean Platelet Volume 8.6 6.9-10.8 fL Neutrophils (%) (Auto) 60.5 37.0-80.0 % Lymphocytes (%) (Auto) 25.7 10.0-50.0 % Monocytes (%) (Auto) 9.4 0.0-12.0 % Eosinophils (%) (Auto) 3.7 0.0-7.0 % Basophils (%) (Auto) 0.7 0.0-2.0 % Neutrophils # (Auto) 3.4 1.6-8.6 10 ^3/uL Lymphocytes # (Auto) 1.4 0.4-5.4 10 ^3/uL Monocytes # (Auto) 0.5 0-1.3 10 ^3/uL Eosinophils # (Auto) 0.2 0-0.8 10 ^3/uL Basophils # (Auto) 0 0-0.2 10 ^3/uL Nucleated Red Blood Cells 0.1 % Assessment/Plan Assessment/Plan Assessment and plan: # Acute bilateral pulmonary emboli - History of recent traveling and continues driving for more than 4000 miles. - Sudden onset of shortness of breath associated with chest pain - CT angio revealed acute pulmonary embolism bilaterally with [id number] clot burden and ground glass and nodular opacity in the left upper lung could represent pulmonary infarct. - Started IV heparin per PE protocol - Ordered echo to rule out right heart strain # Ruled out DVT - Doppler of the lower extremity excluded the possibility of the DVT. # Chronic COPD - DuoNeb with ipratropium and albuterol q.4 p.r.n. # Hyperlipidemia - Ezetimibe 10 mg p.o. daily # Hypertensive heart disease - Losartan 25 mg p.o. daily # PUD prophylaxis - Protonix 40 mg p.o. daily Goal of care discussed with the patient for more than 20 minutes full code Plan of treatment discussed with Dr. Vyas Plan discussed with: Patient, Other My Orders Orders - WASHINGTON HENDERSON RESIDENT Procedure Category Date Status Time Admit ADMIT 04/24/24 Transmitted 21:44 Allergies GAY 04/24/24 In Process 21:44 Code Status CODE 04/24/24 Transmitted 21:44 Sodium Chloride Lock PHA 04/24/24 In Process (Saline Lock Ns) 22:00 Sodium Chloride 0.9% PHA 04/24/24 In Process 21:45 Oxygen Per Hour RT 04/24/24 Transmitted 21:44 Acetaminophen Tablet PHA 04/24/24 In Process (Tylenol Tablet) 21:45 Hydrocodone-Acet PHA 04/24/24 In Process 5/325mg Tab ([place] 21:45 Ondansetron Hcl PHA 04/24/24 In Process (Zofran) 21:45 Complete Blood Count LAB 04/25/24 Verified 04:00 Comprehensive LAB 04/25/24 Verified Metabolic Panel 04:00 Echo 2d Mode Cardiac US 04/24/24 Logged DOP 21:44 Nitroglycerin [facility] 04/24/24 In Process Sublingual (Ntrostat 21:45 Morphine Sulfate PHA 04/24/24 In Process Injection 21:45 Oxygen By Nasal RT 04/24/24 Transmitted Cannula 21:44 Stat Ekg For Chest [facility] 04/24/24 In Process Pain 21:44 Notify Of Changes [facility] 04/24/24 In Process From Base 21:44 Live Ammunition Inspector For [facility] 04/24/24 In Process 24 Hours 21:44 Emergency Dysrhythmia [facility] 04/24/24 In Process Protocol 21:44 Rhythm Strips Once [facility] 04/24/24 In Process Every Shift 21:44 Platelet Monitoring [facility] 04/24/24 Verified 21:55 Vte Protocol Initiated [facility] 04/24/24 Verified 21:55 Heparin Per [facility] 04/24/24 Verified Standardized Proce 21:55 Discontinue All Im [facility] 04/24/24 Verified Injections 21:55 PTPTT LAB 04/24/24 Verified 21:55 Complete Blood Count LAB 04/24/24 Verified 21:55 Heparin Sodium [facility] 04/24/24 Verified (Porcine) 22:00 Heparin Drip/D5w PHA 04/24/24 Verified 100units/Ml 22:00 Bilat Lower Dvt US 04/24/24 Verified 21:55 WASHINGTON HENDERSON RESIDENT Apr 24, 2024 22:02
[2024-04-24] MEDS: SODIUM CHLOR 0.9% PF (SALINE LOCK) 10ML VIAL/SYR IV SCH (22:22)
[2024-04-24 22:34] LABS: Basophils # (auto) 0.1 10 ^3/uL (0-0.2); Basophils % (auto) 1.1 % (0.0-2.0); Eosinophils # (auto) 0.2 10 ^3/uL (0-0.8); Eosinophils % (auto) 3.9 % (0.0-7.0); Hematocrit 42.1 % (41.0-53.0); Hemoglobin 14.1 g/dL (13.5-17.5); Lymphocytes % (auto) 31.4 % (10.0-50.0); Mean Corpuscular Hemoglobin 29.9 pg (28.0-32.0); Mean Corpuscular Hgb Conc. 33.4 g/dL (32.0-36.0); Mean Corpuscular Volume 89.6 fL (80.0-100.0); Monocytes # (auto) 0.6 10 ^3/uL (0-1.3); Monocytes % (auto) 9.1 % (0.0-12.0); Neutrophils # (auto) 3.5 10 ^3/uL (1.6-8.6); Neutrophils % (auto) 54.5 % (37.0-80.0); Nucleated Red Blood Cells % 0.1 %; Platelet Count (auto) 219 10^3/uL (140-450); Red Cell Distribution Width 15.5 % (11.8-14.3); White Blood Cell 6.3 10^3/uL (4.4-10.8)
[2024-04-24 22:48] LABS: INR 1.24 (0.9-1.15); Partial Thromboplastin Time 31.9 SEC (24.5-34.5); Prothrombin Time 12.9 sec (9.3-11.8)
--- NOTE | 2024-04-24 22:58 | DVH ---
Bilateral lower extremity venous duplex Clinical History: To rule out DVT Comparison: None Technique: Duplex Doppler evaluation of the deep venous systems of both lower extremities from the common femora l veins to the popliteal veins including color Doppler and spectral/pulsed waveform analysis was perf ormed. Findings: RIGHT SIDE: The common femoral vein demonstrates appropriate compressibility and waveform variability. There is compressibility/patency of the great saphenous vein at the proximal thigh. The femoral vein demonstrates appropriate compressibility and waveform variability. The deep femoral vein demonstrates appropriate compressibility and waveform variability. The popliteal vein demonstrates appropriate compressibility and waveform variability. There is normal compressibility at the tibioperoneal trunk. LEFT SIDE: The common femoral vein demonstrates appropriate compressibility and waveform variability. There is compressibility/patency of the great saphenous vein at the proximal thigh. The femoral vein demonstrates appropriate compressibility and waveform variability. The deep femoral vein demonstrates appropriate compressibility and waveform variability. The popliteal vein demonstrates appropriate compressibility and waveform variability. There is normal compressibility at the tibioperoneal trunk. Impression: No right or left femoropopliteal venous thrombosis.
[2024-04-25] VITALS (10 sets, daily range): BP systolic 120–135; BP diastolic 63–75; PULSE 56–87; RESP 16–19; TEMP 97.5–98.2; O2SAT 92–96
[2024-04-25] MEDS ORDERED: CEPH500C PO (03:16)
[2024-04-25] MEDS ORDERED: IBUP1TAB5 PO (03:16)
[2024-04-25] MEDS ORDERED: EZET-10 (03:16)
[2024-04-25] MEDS ORDERED: DOXY-267 PO (03:16)
[2024-04-25] MEDS ORDERED: IPRATROPIUM BROM 0.5 MG/2.5ML INH SOL NEB PRN (03:30)
[2024-04-25] MEDS ORDERED: ALBUTEROL SULF 2.5 MG/0.5ML(0.5%) NEB SOLN NEB PRN (03:30)
[2024-04-25] MEDS: HEPARIN DRIP/D5W 100UNITS/ML 250 ML IV SCH (05:13)
[2024-04-25] MEDS: PANTOPRAZOLE 40 MG TAB PO SCH (05:21)
[2024-04-25 05:51] LABS: Basophils # (auto) 0 10 ^3/uL (0-0.2); Basophils % (auto) 0.7 % (0.0-2.0); Eosinophils # (auto) 0.2 10 ^3/uL (0-0.8); Eosinophils % (auto) 4.8 % (0.0-7.0); Hematocrit 43.2 % (41.0-53.0); Hemoglobin 14.3 g/dL (13.5-17.5); Lymphocytes # (auto) 1.5 10 ^3/uL (0.4-5.4); Lymphocytes % (auto) 29.8 % (10.0-50.0); Mean Corpuscular Hemoglobin 29.8 pg (28.0-32.0); Mean Corpuscular Volume 90.3 fL (80.0-100.0); Monocytes # (auto) 0.4 10 ^3/uL (0-1.3); Monocytes % (auto) 7.5 % (0.0-12.0); Neutrophils # (auto) 2.8 10 ^3/uL (1.6-8.6); Neutrophils % (auto) 57.2 % (37.0-80.0); Nucleated Red Blood Cells % 0.1 %; Platelet Count (auto) 217 10^3/uL (140-450); Red Blood Cells 4.78 10^6/uL (4.5-5.90); Red Cell Distribution Width 15.3 % (11.8-14.3); White Blood Cell 4.9 10^3/uL (4.4-10.8)
[2024-04-25 06:10] LABS: Alanine Aminotransferase 16 U/L (7-40); Alkaline Phosphatase 72 U/L (46-116); Anion Gap 7 (5-15); BUN/Creatinine Ratio 10.4 (10.0-20.0); Blood Urea Nitrogen 12 mg/dL (9-23); Calcium 9.4 mg/dL (8.7-10.4); Carbon Dioxide 27 mmol/L (20-31); Chloride 108 mmol/L (98-107); Glucose 93 mg/dL (74-106); Potassium 4.3 mmol/L (3.5-5.1); Sodium 142 mmol/L (136-145)
[2024-04-25 06:11] LABS: Albumin 4.3 g/dL (3.2-4.8); Aspartate Aminotransferase 13 U/L (13-40); Bilirubin, Total 0.4 mg/dL (0.2-1.0); Total Protein 6.7 g/dL (5.7-8.2)
[2024-04-25] MEDS: LOSARTAN POTASSIUM 25 MG TAB PO SCH (09:35)
[2024-04-25] MEDS: EZETIMIBE 10 MG TAB PO SCH (10:00)
--- NOTE | 2024-04-25 10:06 | DVHPNRES ---
Progress Note Date Seen: Apr 25, 2024 Resident Creating Document: YULIA MELENDEZ RESIDENT Has the PT tested + for MRSA If YES, has PT been informed?: No Medical Necessity Reason Pt with a Central, PICC or Fol: No Subjective Review of Systems This is a 68-year-old male with past medical history of hypertension, COPD, PE presented to the ED with a chief complaint of shortness of breath started since prior to this admission. The patient states shortness of breath started last associated with chest pain especially in deep breathing and he went to urgent care and had a chest x-ray and was prescribed antibiotics for possible pneumonia and was advised to follow up with the PCP Dr. Tolbert. Dr. Tolbert scheduled a CT Angiogram that was performed today, 04/24/2024, and revealed bilateral Pulmonary Emboli. Patient reports that Dr. Tolbert instructed him to go to the ER. He also mentioned he had recent traveling to few states of the 2 weeks ago and he drove continuous for more than 4000 miles. He also mentioned that he had history of previous PE developed after came back from the traveling. He denies chest pain, dizziness, diaphoresis, abdominal pain, nausea, vomiting or any change in bowel and bladder habit. Upon my examination, the patient is saturating 96% on room air, blood pressure is stable and all vital signs are unremarkable. Patient is speaking complete sentences without any respiratory difficulty. Patient was started on heparin drip and IV fluids at 75 cc/hour. Patient will be admitted for further assessment and management. Patient seen and examined at bedside. Patient is alert and oriented in person, place and time. Patient is saturating 96% on room air without any evidence of respiratory distress at this time. Patient has no complaints at this time and is currently on heparin drip and IV fluids at 75 cc/hour. We ordered an EKG to have a baseline. Bilateral lower extremity venous Doppler came back showing no evidence of DVTs at this time. Initial chest x-ray also showed hyperinflated lungs but no consolidation and was grossly unremarkable. ROS Constitutional: Denies weight loss, fever and chills. HEENT: Denies changes in vision and hearing. Respiratory: Denies shortness of breath and cough Cardiovascular: Denies chest discomfort or palpitations GI: Denies abdominal pain, nausea, vomiting and diarrhea. : Denies dysuria and urinary frequency. Musculoskeletal: Denies myalgias and joint pain Skin: Denies rash and pruritus. Neurological: Denies dizziness, headache, vision or hearing problems Objective vital signs Vital Sign Date Time Temp Pulse Resp B/P (MAP) Pulse Ox O2 Delivery O2 Flow Rate FiO2 04/25/24 09:35 130/75 04/25/24 09:00 98.0 65 18 96 98.0 04/25/24 06:33 Room Air* 0 21 Total Intake and Output 04/24/24 04/24/24 04/25/24 15:00 23:00 07:00 Intake Total 1075 ml 300 ml Balance 1075 ml 300 ml medications Current Medications Medications Dose Ordered Sig/Niall Route Start Time Stop Time Status Last Admin Dose Admin Sodium Chloride 10 ml Q8HR IV 04/24/24 22:00 04/25/24 05:21 10 ML Acetaminophen 325 mg Q4HP PRN PO 04/24/24 21:45 Acetaminophen/ Hydrocodone Bitart 1 tab Q4HP PRN PO 04/24/24 21:45 Ondansetron HCl 4 mg Q4HP PRN IV 04/24/24 21:45 Nitroglycerin 0.4 mg Q5MINP PRN SL 04/24/24 21:45 Morphine Sulfate 2 mg Q30M PRN IV 04/24/24 21:45 Pantoprazole Sodium 40 mg DAILY@0600 PO 04/25/24 06:00 04/25/24 05:21 40 MG Heparin Sodium/ Dextrose 250 ml @ 19 mls/hr [id number] IV 04/25/24 05:00 04/25/24 05:13 19 MLS/HR Albuterol 2.5 mg Q4HPRN PRN NEB 04/25/24 03:30 Ipratropium [place] 0.5 mg Q4HPRN PRN NEB 04/25/24 03:30 EZETIMIBE 10 mg DAILY PO 04/25/24 10:00 Losartan Potassium 25 mg DAILY PO 04/25/24 10:00 04/25/24 09:35 25 MG Examination Physical Examination General: Patient alert and oriented in person, place and time. Patient following commands. HEENT: Normocephalic, atraumatic, moist mucous membranes Respiratory/pulmonary: Clear lungs bilaterally, no associated crackles or wheezes. Cardiovascular: Normal heart sounds S1 and S2 with no associated murmurs Abdomen: Abdomen nondistended, there is no pain to palpation in any of the abdominal quadrants, no palpable masses. Extremities: There is no peripheral edema present at the lower extremities. Peripheral Pulses: 3+ Radial (R). 3+ Radial (L). 3+ Dorsalis pedis (R). 3+ Dorsalis pedis(L) Skin: No rashes or pruritus, there is no sacral edema present at this time. Neurological: Intact cranial nerves with no focal neurologic deficits laboratory and microbiology Laboratory Tests 04/25/24 05:01 Test 04/25/24 05:01 Range/Units Serum Glucose 93 74-106 mg/dL Problem List/Assessment/Plan Problem List/Assessment/Plan Assessment/Plan Acute respiratory distress likely due to Acute bilateral pulmonary embolism -patient hemodynamically stable, blood pressure on normal range, without any requirement of hemodynamic support at this time. -currently saturating 96% on room air with no evidence of respiratory distress at this time. -continue heparin drip -continue IV fluids at 75 cc/hour -bilateral lower extremity venous Doppler came back showing no evidence of DVTs -CT angio of the chest showed acute pulmonary embolism bilaterally without any evidence of right heart strain at this time. -ordered EKG -ordered echocardiogram Ruled out DVT -bilateral lower extremity venous Doppler came back showing no evidence of DVTs WENDY on CKD Stage II -creatinine was 1.15 and BUN 12, GFR: 70 -continue IV fluids at 75 cc/hour Chronic COPD, no exacerbation at this time -continue respiratory therapy with albuterol and ipratropium med nebs Primary hypertension -continue losartan 25 mg q.d. -monitor blood pressure closely Dyslipidemia -continue ezetimibe 10 mg p.o. q.d. GERD -pantoprazole 40 mg p.o. q.d.. Goals of care discussed with the patient at bedside for > 23min, FULL CODE Plan discussed with Dr. Murray Plan discussed with: Patient Date of Service: Apr 25, 2024 Billing Provider: LIT MURRAY MD Common Visit Codes: [id number] INP/OBS CARE(HIGH) Secondary Visit Codes: 18986-[id number] CARE PLAN 30 MINUTES YULIA MELENDEZ RESIDENT Apr 25, 2024 10:06 LIT MURRAY MD Apr 25, 2024 21:38
[2024-04-25 10:07] LABS: Magnesium 2.3 mg/dL (1.6-2.6)
[2024-04-25 10:08] LABS: Phosphorus 3.9 mg/dL (2.4-5.1)
--- NOTE | 2024-04-25 10:58 | DVHINCON2 ---
Date Seen: Apr 25, [address] Don Reason for Consultation Bilateral PE History of Present Illness Noel Santos this is a 68-year-old male patient presents to the ED with chief complaint of dyspnea and functional class III which started four days before his admission, associated with focal stabbing left inframammary chest pain and variable functional class, night sweats and dry cough. Patient reports recent prolonged travel (4000 miles) two weeks before admission, being immobilized for over 5 hours. Patient states that he was treated for COPD exacerbation when week and a half before admission and completed Z-pack treatment, and then symptoms initiated. The day he presented with dyspnea he was evaluated urgent care modifying antibiotic treatment and indicating dexamethasone injection. Patient's symptoms did not resolve and got progressively worse, evaluated by PCP the day of his admission who ordered an Romero CT which evidence acute bilateral pulmonary embolism (chzd-rv-bljcloqx clot burden with no evidence of right heart strain), ground-glass and nodular opacity in the upper left lung which could represent pulmonary infarct and small left pleural effusion. Patient was called and he presented to the ED.. Denies palpitation, syncope, nausea, vomiting, diarrhea, constipation, unintentional weight loss, dysuria, bleeding and motor sensory deficits. Past medical history: Hypertension, hypertriglyceridemia, prediabetes, asthma, COPD, 2019 PE, provoked (occurred after 5 hour flight) completed treatment with Eliquis for six months. Surgical history: Denies Family history: Father presented MIs age of 70. Mother had lung cancer at age of 78 Social history: Lives in [place] with . Denies history or current tobacco, alcohol and other drug abuse. Patient probably has COPD secondary to secondhand smoking. Allergies: Seasonal. Patient had altered mental status after consuming Eliquis. Home medication: Acetaminophen, Trelegy, albuterol, metformin, AcipHex, losartan Patient seen and examined at bedside. Currently has no new complaints. Past Medical History Per HPI Past Surgical History Per HPI Family History: FH: lung cancer G8 MOTHER Ischemic heart disease G8 FATHER Family History Per HPI Social History Per HPI Allergies: Coded Allergies: NO KNOWN ALLERGIES (Unverified , 06/25/19) Home Meds Reported Medications Ezetimibe (Ezetimibe) 10 Mg Tab, 1 TAB DAILY 04/25/24 Ibuprofen Micronized (Ibuprofen) 600 Mg Tab, 1 TAB PO TID 04/25/24 Doxycycline Monohydrate (Doxycycline Monohydrate) 100 Mg Cap, 1 CAP PO BID 04/25/24 Cephalexin Monohydrate (Cephalexin) 500 Mg Cap, 1 CAP PO Q8H 04/25/24 Losartan Potassium & Hydrochlo (Hyzaar) 1 Tab Tab, 1 TAB PO DAILY, TAB 04/03/24 Atorvastatin Calcium (ATORVASTATIN CALCIUM) 20 Mg Tab, 20 MG PO DAILY, TAB 04/03/24 Jtiwmpdyocv-Mqbplwgvinry-Ulyou (Trelegy Ellipta 200-62.5-25 Mcg/INH) 1 Aer Aer, 1 AER IN DAILY, AER 04/03/24 Montelukast Sodium (Singulair) 5 Mg Chw, 10 MG PO DAILY 03/26/21 Fluticasone Propionate (Fluticasone Propionate) 0.05 % Cre, 50 MCG FAVIAN PRN 03/26/21 Albuterol Sulfate (VENTOLIN MDI) 90 Mcg Ih, 2 PUFF IN PRN for SHORTNESS OF BREATH, INH 06/25/19 Rabeprazole Sodium (Aciphex) 20 Mg Tab, 1 TAB PO DAILY for gerd 06/25/19 Current Medications Current Medications Medications (Trade) Dose Ordered Sig/Niall Route PRN Reason Start Time Stop Time Status Last Admin Sodium Chloride (Saline Lock Ns) 10 ml Q8HR IV 04/24/24 22:00 04/25/24 05:21 Sodium Chloride 1,000 ml @ 75 mls/hr [id number] IV 04/24/24 21:45 04/25/24 09:16 DC 04/24/24 21:45 Acetaminophen (Tylenol Tablet) 325 mg Q4HP PRN PO MILD PAIN (1-3 PAIN SCALE) 04/24/24 21:45 Acetaminophen/ Hydrocodone Bitart ([place] 5/325MG Tab) 1 tab Q4HP PRN PO MODERATE PAIN (4-6 PAIN SCALE) 04/24/24 21:45 Ondansetron HCl (Zofran) 4 mg Q4HP PRN IV NAUSEA / VOMITING 04/24/24 21:45 Nitroglycerin (Ntrostat Sublingual) 0.4 mg Q5MINP PRN SL FOR CHEST PAIN 04/24/24 21:45 Morphine Sulfate 2 mg Q30M PRN IV FOR CHEST PAIN 04/24/24 21:45 Heparin Sodium/ Dextrose 250 ml @ 19 mls/hr [id number] IV 04/24/24 22:00 04/24/24 23:39 DC Pantoprazole Sodium (Protonix Tablet) 40 mg DAILY@0600 PO 04/25/24 06:00 04/25/24 05:21 Heparin Sodium/ Dextrose 250 ml @ 19 mls/hr [id number] IV 04/25/24 05:00 04/25/24 05:13 Albuterol (Ventolin Medneb) 2.5 mg Q4HPRN PRN NEB SHORTNESS OF BREATH 04/25/24 03:30 Ipratropium [place] (Atrovent Medneb) 0.5 mg Q4HPRN PRN NEB SHORTNESS OF BREATH 04/25/24 03:30 EZETIMIBE (Zetia) 10 mg DAILY PO 04/25/24 10:00 Losartan Potassium (Cozaar Tablet) 25 mg DAILY PO 04/25/24 10:00 04/25/24 09:35 Review of Systems Per HPI Vital Signs Vital Signs Date Time Temp Pulse Resp B/P (MAP) Pulse Ox O2 Delivery O2 Flow Rate FiO2 04/25/24 09:35 130/75 04/25/24 09:00 98.0 65 18 96 98.0 04/25/24 06:33 Room Air* 0 21 Physical Exam Patient lying in bed, in no acute distress General: Lucid, afebrile, mucosae are moist Cardiovascular: Normal S1 and S2. No murmurs, gallops or rubs Respiratory: Normal ventilation mechanics. Clear lung sounds on auscultation Abdomen: Soft, nontender, no organomegaly, normal bowel sounds MSK/skin: Mobilizes 4 limbs. Skin is dry and warm Neurological: Oriented in 3 spheres. No motor no sensitive deficits. Pupils are isocoric and reactive Labs/Diagnostic Data Labs Test 04/25/24 05:01 04/24/24 22:16 04/24/24 19:53 04/24/24 19:27 Range/Units White Blood Count 4.9 4.4-10.8 10^3/uL Red Blood Count 4.78 4.5-5.90 10^6/uL Hemoglobin 14.3 13.5-17.5 g/dL Hematocrit 43.2 41.0-53.0 % Mean Corpuscular Volume 90.3 80.0-100.0 fL Mean Corpuscular Hemoglobin 29.8 28.0-32.0 pg Mean Corpuscular Hemoglobin Concent 33.0 32.0-36.0 g/dL Red Cell Distribution Width 15.3 H 11.8-14.3 % Platelet Count 217 140-450 10^3/uL Mean Platelet Volume 8.7 6.9-10.8 fL Neutrophils (%) (Auto) 57.2 37.0-80.0 % Lymphocytes (%) (Auto) 29.8 10.0-50.0 % Monocytes (%) (Auto) 7.5 0.0-12.0 % Eosinophils (%) (Auto) 4.8 0.0-7.0 % Basophils (%) (Auto) 0.7 0.0-2.0 % Neutrophils # (Auto) 2.8 1.6-8.6 10 ^3/uL Lymphocytes # (Auto) 1.5 0.4-5.4 10 ^3/uL Monocytes # (Auto) 0.4 0-1.3 10 ^3/uL Eosinophils # (Auto) 0.2 0-0.8 10 ^3/uL Basophils # (Auto) 0 0-0.2 10 ^3/uL Nucleated Red Blood Cells 0.1 % Sodium Level 142 136-145 mmol/L Potassium Level 4.3 3.5-5.1 mmol/L Chloride Level 108 H 98-107 mmol/L Carbon Dioxide Level 27 20-31 mmol/L Anion Gap 7 5-15 Blood Urea Nitrogen 12 9-23 mg/dL Creatinine 1.15 0.700-1.30 mg/dL Glomerular Filtration Rate Calc 70 >90 mL/min BUN/Creatinine Ratio 10.4 10.0-20.0 Serum Glucose 93 74-106 mg/dL Hemoglobin A1c 5.9 H <5.7 % A1C Calcium Level 9.4 8.7-10.4 mg/dL Phosphorus Level 3.9 2.4-5.1 mg/dL Magnesium Level 2.3 1.6-2.6 mg/dL Total Bilirubin 0.4 0.2-1.0 mg/dL Aspartate Amino Transferase (AST) 13 13-40 U/L Alanine Aminotransferase (ALT) 16 7-40 U/L Alkaline Phosphatase 72 46-116 U/L Total Protein 6.7 5.7-8.2 g/dL Albumin 4.3 3.2-4.8 g/dL Triglycerides Level 119 < 150 mg/dL Cholesterol Level 154 < 200 mg/dL LDL Cholesterol 117 H < 100 mg/dL HDL Cholesterol 30 L 40-59 mg/dL Vitamin B12 Level 775 211-911 pg/mL Prothrombin Time 12.9 H 9.3-11.8 sec Prothrombin Time INR 1.24 H 0.9-1.15 Activated Partial Thromboplast Time 31.9 24.5-34.5 SEC Troponin I High Sensitivity < 3 L </=54 ng/L Urine Color Light-yellow Yellow Urine Clarity Clear Clear Urine pH 6.0 5.0-9.0 Urine Specific [place] 1.047 H 1.001-1.035 Urine Protein Negative Negative Urine Ketones Negative Negative Urine Blood Negative Negative /uL Urine Nitrite Negative Negative Urine Bilirubin Negative Negative Urine Urobilinogen Normal Negative mg/dL Urine Leukocyte Esterase Negative Negative /uL Urine RBC <1 0 - 3 /hpf Urine WBC 1 0 - 3 /hpf Urine Squamous Epithelial Cells Few <5 /hpf Urine Bacteria None seen None Seen /hpf Urine Glucose Normal Normal mg/dL Test 04/24/24 18:27 Range/Units Lactic Acid Level 1.4 0.4-2.0 mmol/L B-Type Natriuretic Peptide 73.25 0-100 pg/mL Assessment Bilateral acute pulmonary embolism intermediate-low risk by ESC (PESI 86 points, RIETE 1 point) Pulmonary infarct Hypertension Hypertriglyceridemia Prediabetes History of asthma/COPD Plan/Recommendation Patient is currently on heparin drip, troponin negative, BNP negative, no RV strain on Romero CT, hemodynamically stable, saturating over 90% in room air. Echocardiogram with LVEF 55%, grade 1 diastolic dysfunction, normal RV systolic function, RVSP 29 mmHg. Patient may require oral anticoagulation other than Eliquis (presented altered mental status with this medication) Completed lower limb extremity ultrasound with no evidence of DVT Have discussed with patient probable need of lifelong anticoagulation. Angio CT of chest completed which showed acute bilateral pulmonary embolism with [id number]-bt-[id number] clot burden and no evidence of right heart strain. Ground- glass and nodular opacities in the left upper lung could represent pulmonary infarct. Discussed case with Dr. Vo, patient, family and nurses: Patient is hemodynamically stable, asymptomatic, breathing on room air with normal sat uration, cardiac biomarkers negative, echocardiogram and Angio CT showed no RV strain. We will transition from heparin drip to no ex on 04/26/2024. No interventional thrombectomy needed at this time. Have discussed extensively with patient long-term anticoagulation treatment. Plan discussed with: Patient, Spouse, Other (Nurses) Date of Service: Apr 25, 2024 Billing Provider: JN VO MD Cardiology Common Codes: 81672-[id number] INP/OBS CARE (High), [id number] CARE 30-74 MIN JAC CRESPO RESIDENT Apr 25, 2024 10:58
[2024-04-25 13:01] LABS: INR 1.22 (0.9-1.15); Prothrombin Time 12.7 sec (9.3-11.8)
[2024-04-25 13:04] LABS: Partial Thromboplastin Time 70.8 SEC (24.5-34.5)
--- NOTE | 2024-04-25 13:28 | DVHSR ---
APPROVED REPORT EXAM: Two-dimensional and M-mode echocardiogram with Doppler and color Doppler. Blood Pressure: 121/68 mmHg INDICATION Pulmonary Embolism RISK FACTORS Height: 6'1", Weight: 233 DIMENSIONS LVDd4.4 (3.8-5.7cm)LA (2D)4.1 (1.9-4.0cm)Aortic Root3.5 (2.0-3.7cm) LVDs2.9 (2.5-4.0cm)LA (MM) (1.9-4.0cm)Aortic Cusp Exc1.3 (1.5-2.0cm) EF (%) 65.0 (55-70%)Rt. Atrium4.4 (1.9-4.0cm)Asc. Aorta cm IVSd1.0 (0.7-1.1cm)RV (D)4.7 (1.8-2.4cm) PWd0.9 (0.7-1.1cm) Mitral Valve MitralMitral Stenosis E wave0.81m/sMV Mean GR.mmHg A wave0.89m/sMV Peak GR.mmHg E/A ratio0.92D MVAcm2 DECEL [id number] 1/2 [place] Aortic Valve Aortic ValveAortic Stenosis V11.34m/Fredi Mean GR.5mmHg V21.49m/Fredi Peak GR.9mmHg LVOT Diameter2.1 (1.8-2.4cm)Doppler AVA3.11cm2 Pulmonic Valve V21.42m/s Tricuspid Valve TR Velocity2.27m/s [id number] Other Information Quality : Technically LimitedRhythm : Technically limited study due to body habitus. Conclusion Normal left ventricular size and dimension. Normal left ventricular systolic function estimated ejec tion fraction 55%. There is a grade 1 diastolic dysfunction. Normal right ventricular size and dimension. Normal right ventricular systolic function. Slightly i ncreased right ventricular systolic pressure 29 mm of mercury. Normal biatrial size and dimension. Normal aortic valve structure and function. Normal mitral valve structure and function. Normal tricuspid valve structure and function. The pulmonary valve is grossly normal. No pericardial effusion.
[2024-04-25 19:31] LABS: INR 1.18 (0.9-1.15); Partial Thromboplastin Time 60.6 SEC (24.5-34.5); Prothrombin Time 12.4 sec (9.3-11.8)
[2024-04-26 01:00] VITALS: BP 98/44; PULSE 61; RESP 17; TEMP 97.8; O2SAT 93
[2024-04-26 01:10] LABS: INR 1.22 (0.9-1.15); Prothrombin Time 12.7 sec (9.3-11.8)
[2024-04-26 01:17] LABS: Partial Thromboplastin Time 92.3 SEC (24.5-34.5)
[2024-04-26] MEDS: HEPARIN DRIP/D5W 100UNITS/ML 250 ML IV SCH (02:35)
[2024-04-26 05:00] VITALS: BP 118/61; PULSE 93; RESP 18; TEMP 97.8; O2SAT 72
[2024-04-26 06:44] LABS: Anion Gap 6 (5-15); Carbon Dioxide 28 mmol/L (20-31); Chloride 107 mmol/L (98-107); Potassium 4.4 mmol/L (3.5-5.1); Sodium 141 mmol/L (136-145)
[2024-04-26 06:45] LABS: Calcium 9.5 mg/dL (8.7-10.4)
[2024-04-26 06:50] LABS: BUN/Creatinine Ratio 10.9 (10.0-20.0); Blood Urea Nitrogen 13 mg/dL (9-23); Glucose 100 mg/dL (74-106); INR 1.23 (0.9-1.15); Prothrombin Time 12.8 sec (9.3-11.8)
[2024-04-26 06:53] LABS: Partial Thromboplastin Time 87.5 SEC (24.5-34.5)
[2024-04-26 06:57] LABS: Basophils # (auto) 0 10 ^3/uL (0-0.2); Basophils % (auto) 0.6 % (0.0-2.0); Eosinophils # (auto) 0.2 10 ^3/uL (0-0.8); Eosinophils % (auto) 4.1 % (0.0-7.0); Hematocrit 44.3 % (41.0-53.0); Hemoglobin 14.9 g/dL (13.5-17.5); Lymphocytes # (auto) 1.6 10 ^3/uL (0.4-5.4); Lymphocytes % (auto) 27.8 % (10.0-50.0); Mean Corpuscular Hemoglobin 30.4 pg (28.0-32.0); Mean Corpuscular Hgb Conc. 33.7 g/dL (32.0-36.0); Mean Corpuscular Volume 89.9 fL (80.0-100.0); Monocytes # (auto) 0.6 10 ^3/uL (0-1.3); Monocytes % (auto) 9.8 % (0.0-12.0); Neutrophils # (auto) 3.3 10 ^3/uL (1.6-8.6); Neutrophils % (auto) 57.7 % (37.0-80.0); Nucleated Red Blood Cells % 0.2 %; Platelet Count (auto) 223 10^3/uL (140-450); Red Blood Cells 4.92 10^6/uL (4.5-5.90); Red Cell Distribution Width 15.6 % (11.8-14.3); White Blood Cell 5.8 10^3/uL (4.4-10.8)
[2024-04-26 08:00] VITALS: PULSE 61; PULSE 67
[2024-04-26] MEDS ORDERED: RIV15T PO (08:28)
[2024-04-26] MEDS ORDERED: RIV20T PO ×2 (08:28→08:29)
--- NOTE | 2024-04-26 08:34 | DVHDSRES ---
Discharge Summary Date of Admission Resident Creating Document: YULIA MELENDEZ RESIDENT Apr 24, 2024 at 21:44 Date of Discharge: Apr 26, 2024 Admitting Diagnosis Acute respiratory distress due to bilateral pulmonary embolism Wounds: No wounds present at this time. Labs/Diagnostic Data: Laboratory Results Test 04/26/24 05:30 04/25/24 05:01 04/24/24 19:53 04/24/24 19:27 White Blood Count 5.8 10^3/uL (4.4-10.8) Red Blood Count 4.92 10^6/uL (4.5-5.90) Hemoglobin 14.9 g/dL (13.5-17.5) Hematocrit 44.3 % (41.0-53.0) Mean Corpuscular Volume 89.9 fL (80.0-100.0) Mean Corpuscular Hemoglobin 30.4 pg (28.0-32.0) Mean Corpuscular Hemoglobin Concent 33.7 g/dL (32.0-36.0) Red Cell Distribution Width 15.6 % (11.8-14.3) Platelet Count 223 10^3/uL (140-450) Mean Platelet Volume 8.5 fL (6.9-10.8) Neutrophils (%) (Auto) 57.7 % (37.0-80.0) Lymphocytes (%) (Auto) 27.8 % (10.0-50.0) Monocytes (%) (Auto) 9.8 % (0.0-12.0) Eosinophils (%) (Auto) 4.1 % (0.0-7.0) Basophils (%) (Auto) 0.6 % (0.0-2.0) Neutrophils # (Auto) 3.3 10 ^3/uL (1.6-8.6) Lymphocytes # (Auto) 1.6 10 ^3/uL (0.4-5.4) Monocytes # (Auto) 0.6 10 ^3/uL (0-1.3) Eosinophils # (Auto) 0.2 10 ^3/uL (0-0.8) Basophils # (Auto) 0 10 ^3/uL (0-0.2) Nucleated Red Blood Cells 0.2 % Prothrombin Time 12.8 sec (9.3-11.8) Prothrombin Time INR 1.23 (0.9-1.15) Activated Partial Thromboplast Time 87.5 SEC (24.5-34.5) Sodium Level 141 mmol/L (136-145) Potassium Level 4.4 mmol/L (3.5-5.1) Chloride Level 107 mmol/L (98-107) Carbon Dioxide Level 28 mmol/L (20-31) Anion Gap 6 (5-15) Blood Urea Nitrogen 13 mg/dL (9-23) Creatinine 1.19 mg/dL (0.700-1.30) Glomerular Filtration Rate Calc 67 mL/min (>90) BUN/Creatinine Ratio 10.9 (10.0-20.0) Serum Glucose 100 mg/dL (74-106) Calcium Level 9.5 mg/dL (8.7-10.4) Hemoglobin A1c 5.9 % A1C (<5.7) Phosphorus Level 3.9 mg/dL (2.4-5.1) Magnesium Level 2.3 mg/dL (1.6-2.6) Total Bilirubin 0.4 mg/dL (0.2-1.0) Aspartate Amino Transferase (AST) 13 U/L (13-40) Alanine Aminotransferase (ALT) 16 U/L (7-40) Alkaline Phosphatase 72 U/L (46-116) Total Protein 6.7 g/dL (5.7-8.2) Albumin 4.3 g/dL (3.2-4.8) Triglycerides Level 119 mg/dL (< 150) Cholesterol Level 154 mg/dL (< 200) LDL Cholesterol 117 mg/dL (< 100) HDL Cholesterol 30 mg/dL (40-59) Vitamin B12 Level 775 pg/mL (211-911) Vitamin D 25-Hydroxy 49.5 ng/mL (30.0-100) Thyroid Stimulating Hormone (TSH) 2.63 uIU/mL (0.55-4.78) Troponin I High Sensitivity < 3 ng/L (</=54) Urine Color Light-yellow (Yellow) Urine Clarity Clear (Clear) Urine pH 6.0 (5.0-9.0) Urine Specific [place]di 1.047 (1.001-1.035) Urine Protein Negative (Negative) Urine Ketones Negative (Negative) Urine Blood Negative /uL (Negative) Urine Nitrite Negative (Negative) Urine Bilirubin Negative (Negative) Urine Urobilinogen Normal mg/dL (Negative) Urine Leukocyte Esterase Negative /uL (Negative) Urine RBC <1 /hpf (0 - 3) Urine WBC 1 /hpf (0 - 3) Urine Squamous Epithelial Cells Few /hpf (<5) Urine Bacteria None seen /hpf (None Seen) Urine Glucose Normal mg/dL (Normal) Test 04/24/24 18:27 Lactic Acid Level 1.4 mmol/L (0.4-2.0) B-Type Natriuretic Peptide 73.25 pg/mL (0-100) Other Laboratory Tests 04/26/24 05:30 Brief Hx & Hospital Course: This is a 68-year-old male with past medical history of hypertension, COPD, PE presented to the ED with a chief complaint of shortness of breath started since prior to this admission. The patient states shortness of breath started last associated with chest pain especially in deep breathing and he went to urgent care and had a chest x-ray and was prescribed antibiotics for possible pneumonia and was advised to follow up with the PCP Dr. Tolbert. Dr. Tolbert scheduled a CT Angiogram that was performed today, 04/24/2024, and revealed bilateral Pulmonary Emboli. Patient reports that Dr. Tolbert instructed him to go to the ER. He also mentioned he had recent traveling to few states of the 2 weeks ago and he drove continuous for more than 4000 miles. He also mentioned that he had history of previous PE developed after came back from the traveling. He denies chest pain, dizziness, diaphoresis, abdominal pain, nausea, vomiting or any change in bowel and bladder habit. Upon my examination, the patient is saturating 96% on room air, blood pressure is stable and all vital signs are unremarkable. Patient is speaking complete sentences without any respiratory difficulty. Patient was started on heparin drip and IV fluids at 75 cc/hour. Today, the patient was evaluated at bedside and denied any chest pain, shortness of breath or any other complaints at this time. IV fluids were stopped, heparin drip was stopped and was switched to oral rivaroxaban 15 mg b.i.d. we will discharge the patient home on rivaroxaban 15 mg b.i.d. for the 1st 21 days and then patient will continue with rivaroxaban 20 mg q.d. for at least six months. We have a long discussion with the patient regarding pros and cons of continuing anticoagulation long live since this is the 2nd episode of pulmonary embolism. We encouraged the patient to follow up closely with his PCP and have this same discussion with him as well to take the decision of continuing long life anticoagulation. Patient agrees and understands the plan. ROS Constitutional: Denies weight loss, fever and chills. HEENT: Denies changes in vision and hearing. Respiratory: Denies shortness of breath and cough Cardiovascular: Denies chest discomfort or palpitations GI: Denies abdominal pain, nausea, vomiting and diarrhea. : Denies dysuria and urinary frequency. Musculoskeletal: Denies myalgias and joint pain Skin: Denies rash and pruritus. Neurological: Denies dizziness, headache, vision or hearing problems Physical Examination General: Patient alert and oriented in person, place and time. Patient following commands. HEENT: Normocephalic, atraumatic, moist mucous membranes Respiratory/pulmonary: Clear lungs bilaterally, no associated crackles or wheezes. Cardiovascular: Normal heart sounds S1 and S2 with no associated murmurs Abdomen: Abdomen nondistended, there is no pain to palpation in any of the abdominal quadrants, no palpable masses. Extremities: There is no peripheral edema present at the lower extremities. Peripheral Pulses: 3+ Radial (R). 3+ Radial (L). 3+ Dorsalis pedis (R). 3+ Dorsalis pedis(L) Skin: No rashes or pruritus, there is no sacral edema present at this time. Neurological: Intact cranial nerves with no focal neurologic deficits Consults/Reason for consult Cardiology Operations or Procedures CHEST RADIOGRAPH Indication:sob Technique: Single frontal view of the chest was obtained Comparison: None FINDINGS: Lines and Tubes: None Lungs: No focal consolidation. Pleura: No effusion. No pneumothorax. Cardiomediastinal contours: Unremarkable Bones: No acute osseous abnormality. IMPRESSION: No acute cardiopulmonary disease. Bilateral lower extremity venous duplex Clinical History: To rule out DVT Comparison: None Technique: Duplex Doppler evaluation of the deep venous systems of both lower extremities from the common femoral veins to the popliteal veins including color Doppler and spectral/pulsed waveform analysis was performed. Findings: RIGHT SIDE: The common femoral vein demonstrates appropriate compressibility and waveform variability. There is compressibility/patency of the great saphenous vein at the proximal thigh. The femoral vein demonstrates appropriate compressibility and waveform variability. The deep femoral vein demonstrates appropriate compressibility and waveform variability. The popliteal vein demonstrates appropriate compressibility and waveform variability. There is normal compressibility at the tibioperoneal trunk. LEFT SIDE: The common femoral vein demonstrates appropriate compressibility and waveform variability. There is compressibility/patency of the great saphenous vein at the proximal thigh. The femoral vein demonstrates appropriate compressibility and waveform variability. The deep femoral vein demonstrates appropriate compressibility and waveform variability. The popliteal vein demonstrates appropriate compressibility and waveform variability. There is normal compressibility at the tibioperoneal trunk. Impression: No right or left femoropopliteal venous thrombosis. CTA Chest with intravenous contrast INDICATION: SOB COMPARISON: CT CHEST WITHOUT CONTRAST on DOS: 07/21/23 TECHNIQUE: Multidetector spiral CTA of the chest was performed of the chest with intravenous contrast. PULMONARY ANGIOGRAPHY PROTOCOL was utilized using a bolus- tracking technique centered on the main pulmonary artery. Axial, coronal and sagittal multiplanar and MIP reformats were performed. Radiation dose : Chest: CTDI volume is 45 mGy. Dose-length product is 1126 mGy*cm The dose indicators for CT are the volume computed Tomography (CT) dose Index (CTDIvol) and the dose Length product (DLP), and are measured in units of mGy and mGy-cm, respectively. These indicators are not patient dose, but values generated from the CT scanner acquisition factors. The report includes radiation exposure data for exposures received during this examination. Findings: Pulmonary artery: There are filling defects in segmental and segmental branches bilaterally consistent with acute pulmonary embolus. Clot burden is [id number]. Lower neck: Normal thyroid. Lungs: There is ground glass and nodular opacity in the left upper lung. There is atelectasis scarring in the lung bases. Heart/Vascular Structures: Normal heart size. No pericardial effusion. Lymph Nodes: No adenopathy Pleura: Small left pleural effusion. Musculoskeletal: No acute osseous abnormality. Soft tissues: Normal. Upper abdomen: Hepatic cysts noted. IMPRESSION: 1. Acute pulmonary embolism bilaterally. [id number] clot burden. No evidence of right heart strain. 2. Ground glass and nodular opacity in the left upper lung could represent pulmonary infarct. Small left pleural effusion. By basilar atelectasis and scarring. Hepatic cysts. Critical Result: Pumonary Emboli Condition at Discharge: Good Final Diagnosis/Problems List Acute respiratory distress likely due to Acute bilateral pulmonary embolism Ruled out DVT WENDY on CKD Stage II Chronic COPD, no exacerbation at this time Primary hypertension Dyslipidemia GERD Discharge Disposition: Home Discharge Instruct/Medications Diet: Regular Activity: No Restrictions, As Tolerated Follow Up/Referral: F/U with his PCP in 1 week Medications: Rivaroxaban 15mg BID po for 21 days, then continue rivaroxaban 20mg QD po for at least 6 months. Discharge Statement: "Patient was advised to return to the ER or call 911 if any headaches, dizziness, shortness of breath, chest pain, abdominal pain, bleeding, fevers, or worsening of medical condition. Patient was counseled about treatment plan, medications, possible side effects, patientverbalized understanding. All questions were answered to the best of my ability. This discharge took greater then 30 minutes in planning, reviewing documentation, counseling the patient, and discussing with other team members." ASSESSMENT ASSESSMENT Assessment Acute respiratory distress likely due to Acute bilateral pulmonary embolism Ruled out DVT WENDY on CKD Stage II Chronic COPD, no exacerbation at this time Primary hypertension Dyslipidemia GERD Date of Service: Apr 26, 2024 Billing Provider: KAELA ARRIAGA MD Common Visit Codes: 03462-WBB/OBS DISCH DAY >30min YULIA MELENDEZ RESIDENT Apr 26, 2024 08:34 KAELA ARRIAGA MD Apr 30, 2024 14:06
[2024-04-26 09:00] VITALS: BP 114/84; PULSE 61; RESP 18; TEMP 97.6; O2SAT 94
[2024-04-26] MEDS: RIVAROXABAN 15 MG TAB PO SCH (09:05)
--- NOTE | 2024-04-26 09:49 | DVHPNRES ---
Progress Note Date Seen: Apr 26, 2024 Resident Creating Document: JAC CRESPO RESIDENT Has the PT tested + for MRSA If YES, has PT been informed?: No Medical Necessity Reason Pt with a Central, PICC or Fol: No Subjective Review of Systems Noel Santos this is a 68-year-old male patient presents to the ED with chief complaint of dyspnea and functional class III which started four days before his admission, associated with focal stabbing left inframammary chest pain and variable functional class, night sweats and dry cough. Patient reports recent prolonged travel (4000 miles) two weeks before admission, being immobilized for over 5 hours. Patient states that he was treated for COPD exacerbation when week and a half before admission and completed Z-pack treatment, and then symptoms initiated. The day he presented with dyspnea he was evaluated urgent care modifying antibiotic treatment and indicating dexamethasone injection. Patient's symptoms did not resolve and got progressively worse, evaluated by PCP the day of his admission who ordered an Romero CT which evidence acute bilateral pulmonary embolism ([id number] clot burden with no evidence of right heart strain), ground-glass and nodular opacity in the upper left lung which could represent pulmonary infarct and small left pleural effusion. Patient was called and he presented to the ED.. Denies palpitation, syncope, nausea, vomiting, diarrhea, constipation, unintentional weight loss, dysuria, bleeding and motor sensory deficits. Past medical history: Hypertension, hypertriglyceridemia, prediabetes, asthma, COPD, 2019 PE, provoked (occurred after 5 hour flight) completed treatment with Eliquis for six months. Surgical history: Denies Family history: Father presented MIs age of 70. Mother had lung cancer at age of 78 Social history: Lives in [place] with . Denies history or current tobacco, alcohol and other drug abuse. Patient probably has COPD secondary to secondhand smoking. Allergies: Seasonal. Patient had altered mental status after consuming Eliquis. Home medication: Acetaminophen, Trelegy, albuterol, metformin, AcipHex, losartan Patient seen and examined at bedside. Currently has no new complaints. Objective vital signs Vital Sign Date Time Temp Pulse Resp B/P (MAP) Pulse Ox O2 Delivery O2 Flow Rate FiO2 04/26/24 09:05 114/84 04/26/24 09:00 97.6 61 18 94 97.6 04/25/24 23:12 Room Air* 0 21 Total Intake and Output 04/25/24 04/25/24 04/26/24 15:00 23:00 07:00 Intake Total 1790 ml 501 ml Balance 1790 ml 501 ml medications Current Medications Medications Dose Ordered Sig/Niall Route Start Time Stop Time Status Last Admin Dose Admin Sodium Chloride 10 ml Q8HR IV 04/24/24 22:00 04/26/24 05:10 10 ML Acetaminophen 325 mg Q4HP PRN PO 04/24/24 21:45 Acetaminophen/ Hydrocodone Bitart 1 tab Q4HP PRN PO 04/24/24 21:45 Ondansetron HCl 4 mg Q4HP PRN IV 04/24/24 21:45 Nitroglycerin 0.4 mg Q5MINP PRN SL 04/24/24 21:45 Morphine Sulfate 2 mg Q30M PRN IV 04/24/24 21:45 Pantoprazole Sodium 40 mg DAILY@0600 PO 04/25/24 06:00 04/26/24 05:10 40 MG Albuterol 2.5 mg Q4HPRN PRN NEB 04/25/24 03:30 Ipratropium [place] 0.5 mg Q4HPRN PRN NEB 04/25/24 03:30 EZETIMIBE 10 mg DAILY PO 04/25/24 10:00 Losartan Potassium 25 mg DAILY PO 04/25/24 10:00 04/26/24 09:05 25 MG Rivaroxaban 15 mg BID PO 04/26/24 10:00 05/17/24 09:59 04/26/24 09:05 15 MG Examination Patient lying in bed, in no acute distress General: Lucid, afebrile, mucosae are moist Cardiovascular: Normal S1 and S2. No murmurs, gallops or rubs Respiratory: Normal ventilation mechanics. Clear lung sounds on auscultation Abdomen: Soft, nontender, no organomegaly, normal bowel sounds MSK/skin: Mobilizes 4 limbs. Skin is dry and warm Neurological: Oriented in 3 spheres. No motor no sensitive deficits. Pupils are isocoric and reactive laboratory and microbiology Laboratory Tests 04/26/24 05:30 Test 04/26/24 05:30 Range/Units Serum Glucose 100 74-106 mg/dL Problem List/Assessment/Plan Problem List/Assessment/Plan Assessment Bilateral acute pulmonary embolism intermediate-low risk by ESC (PESI 86 points, RIETE 1 point) Pulmonary infarct Hypertension Hypertriglyceridemia Prediabetes History of asthma/COPD Plan/Recommendation Patient is currently on heparin drip, troponin negative, BNP negative, no RV strain on Romero CT, hemodynamically stable, saturating over 90% in room air. Echocardiogram with LVEF 55%, grade 1 diastolic dysfunction, normal RV systolic function, RVSP 29 mmHg. Patient may require oral anticoagulation other than Eliquis (presented altered mental status with this medication) Completed lower limb extremity ultrasound with no evidence of DVT Have discussed with patient probable need of lifelong anticoagulation. Angio CT of chest completed which showed acute bilateral pulmonary embolism with [id number] clot burden and no evidence of right heart strain. Ground- glass and nodular opacities in the left upper lung could represent pulmonary infarct. Discussed case with Dr. Bailey, patient, family and nurses: Patient is hemodynamically stable, asymptomatic, breathing on room air with normal saturation, cardiac biomarkers negative, echocardiogram and Angio CT showed no RV strain. We will transition from heparin drip to Rivaroxaban on 04/26/2024. No interventional thrombectomy needed at this time. Have discussed extensively with patient long-term anticoagulation treatment. Will sign off of case, thank you for allowing me to participate in this case. Plan discussed with: Patient, Spouse, Other (Nurses) Visit Coding Cardiology RES Date of Service: Apr 26, 2024 Billing Provider: JN BAILEY MD Cardiology Common Codes: 52661-QTB/OBS SAME DATE (High), 86664-[id number] CARE- EACH +30MIN JAC CRESPO RESIDENT Apr 26, 2024 09:49
[2024-04-26] MEDS ORDERED: APIXABAN 5 MG TAB PO SCH (10:00)
[2024-04-26 10:24] VITALS: BP 114/84; PULSE 61; RESP 18; TEMP 97.6; O2SAT 94
[2024-05-03] MEDS ORDERED: APIXABAN 5 MG TAB PO SCH (10:00)
== END 2024-04-26 11:32 | disposition home or self-care (01) | DRG 176 ==
LOC: ER 17:14 → TELE 21:44 → TELE-WESTW 04-25 02:38
PROVIDERS: ADMIT Internal Medicine; ATTEND Internal Medicine
DX: I26.99 Other pulmonary embolism without acute cor pulmonale (principal); J98.11 Atelectasis; N17.9 Acute kidney failure, unspecified; E78.1 Pure hyperglyceridemia; J44.89 Other specified chronic obstructive pulmonary disease; E78.5 Hyperlipidemia, unspecified; K76.89 Other specified diseases of liver; R06.03 Acute respiratory distress; R73.03 Prediabetes; N18.2 Chronic kidney disease, stage 2 (mild); K21.9 Gastro-esophageal reflux disease without esophagitis; I12.9 Hypertensive chronic kidney disease with stage 1 through stage 4 chronic kidney disease, or unspecified chronic kidney disease; Z79.01 Long term (current) use of anticoagulants; Z80.1 Family history of malignant neoplasm of trachea, bronchus and lung; Z79.899 Other long term (current) drug therapy
CPT/HCPCS: 36415; 71045; 80048; 80053; 80061; 81001; 82306; 82607; 83036; 83605; 83735; 83880; 84100; 84443; 84484; 85025; 85610; 85730; 93306; 93970; 96360; 96372; 99291; G0378

== ENCOUNTER → 2024-04-24 | Outpatient (CLI) | payer OTHER ==
[~2024-04-24] MED LIST changes: +CEPH500C PO; +DOXY-267 PO; +EZET-10; +IBUP1TAB5 PO
[2024-04-24 10:16] LABS: Anion Gap 5 (5-15); Carbon Dioxide 29 mmol/L (20-31); Chloride 107 mmol/L (98-107); Potassium 4.8 mmol/L (3.5-5.1); Sodium 141 mmol/L (136-145)
[2024-04-24 10:17] LABS: Calcium 9.8 mg/dL (8.7-10.4)
[2024-04-24 10:22] LABS: Blood Urea Nitrogen 15 mg/dL (9-23); Glucose 93 mg/dL (74-106)
== END | disposition home or self-care (01) ==
LOC: LAB 09:27
PROVIDERS: ATTEND Internal Medicine
DX: R06.02 Shortness of breath (principal)
CPT/HCPCS: 36415; 80048

== ENCOUNTER → 2024-05-01 | Outpatient (CLI) | payer OTHER ==
[~2024-05-01] MED LIST changes: +CEPH500C PO; +DOXY-267 PO; +EZET-10; +IBUP1TAB5 PO; +RIV15T PO; +RIV20T PO
[2024-05-06 12:06] LABS: Dilute Prothrombin Time(dPT) 55.1 sec (0.0-47.6); Lupus Interpretation Comment: (.); PTT-LA 40.6 sec (0.0-43.5); Thrombin Time 20.9 sec (0.0-23.0); dPT Confirm Ratio 0.88 Ratio (0.00-1.34); dRVVT Confirm 1.4 ratio (0.8-1.2); dRVVT Mix 70.1 sec (0.0-40.4)
== END | disposition home or self-care (01) ==
LOC: LAB 10:27
PROVIDERS: ATTEND Internal Medicine
DX: I12.9 Hypertensive chronic kidney disease with stage 1 through stage 4 chronic kidney disease, or unspecified chronic kidney disease (principal); N18.2 Chronic kidney disease, stage 2 (mild); J44.9 Chronic obstructive pulmonary disease, unspecified; K21.9 Gastro-esophageal reflux disease without esophagitis
CPT/HCPCS: 85613; 85670; 85705; 85732

== ENCOUNTER → 2024-07-10 | Outpatient (CLI) | payer OTHER ==
[2024-07-10 07:48] LABS: Urine Bacteria None Seen /hpf (None Seen); Urine Blood Negative /uL (Negative); Urine Clarity Clear (Clear); Urine Color Light-Yellow (Yellow); Urine Protein, UAD Negative (Negative); Urine Specific Gravity 1.016 (1.001-1.035); Urine Squamous Epithelial Cell None Seen /hpf (<5); Urine Urobilinogen Normal (Negative); Urine WBC < 1 /HPF (0-3); Urine pH 5.5 (5.0-9.0)
[2024-07-10 08:04] LABS: Basophils # (auto) 0 10 ^3/uL (0-0.2); Basophils % (auto) 0.6 % (0.0-2.0); Eosinophils # (auto) 0.3 10 ^3/uL (0-0.8); Eosinophils % (auto) 4.6 % (0.0-7.0); Hematocrit 46.7 % (41.0-53.0); Lymphocytes # (auto) 1.3 10 ^3/uL (0.4-5.4); Lymphocytes % (auto) 24.4 % (10.0-50.0); Mean Corpuscular Hemoglobin 30.7 pg (28.0-32.0); Mean Corpuscular Hgb Conc. 34.2 g/dL (32.0-36.0); Mean Corpuscular Volume 89.8 fL (80.0-100.0); Monocytes # (auto) 0.6 10 ^3/uL (0-1.3); Monocytes % (auto) 10.5 % (0.0-12.0); Neutrophils # (auto) 3.3 10 ^3/uL (1.6-8.6); Neutrophils % (auto) 59.9 % (37.0-80.0); Nucleated Red Blood Cells % 0.3 %; Platelet Count (auto) 190 10^3/uL (140-450); Red Blood Cells 5.19 10^6/uL (4.5-5.90); Red Cell Distribution Width 14.2 % (11.8-14.3); White Blood Cell 5.5 10^3/uL (4.4-10.8)
[2024-07-10 08:10] LABS: Alanine Aminotransferase 25 U/L (7-40); Alkaline Phosphatase 87 U/L (46-116); Anion Gap 8 (5-15); Aspartate Aminotransferase 19 U/L (13-40); BUN/Creatinine Ratio 11.8 (10.0-20.0); Blood Urea Nitrogen 15 mg/dL (9-23); Calcium 10.4 mg/dL (8.7-10.4); Carbon Dioxide 30 mmol/L (20-31); Chloride 105 mmol/L (98-107); Potassium 4.4 mmol/L (3.5-5.1); Sodium 143 mmol/L (136-145)
[2024-07-10 08:11] LABS: Bilirubin, Total 0.8 mg/dL (0.2-1.0); Cholesterol 191 mg/dL (< 200); Total Protein 7.3 g/dL (5.7-8.2)
[2024-07-10 08:19] LABS: Albumin 4.8 g/dL (3.2-4.8); Glucose 96 mg/dL (74-106); HDL Cholesterol 36 mg/dL (40-59); LDL Cholesterol 131 mg/dL (< 100); Triglycerides 202 mg/dL (< 150)
== END | disposition home or self-care (01) ==
LOC: LAB 07:27
PROVIDERS: ATTEND Internal Medicine
DX: E04.1 Nontoxic single thyroid nodule (principal); E78.5 Hyperlipidemia, unspecified; N18.2 Chronic kidney disease, stage 2 (mild); R73.03 Prediabetes
CPT/HCPCS: 36415; 80053; 80061; 81001; 83036; 84403; 85025

== ENCOUNTER → 2024-09-16 | Outpatient (CLI) | payer OTHER ==
[2024-09-16 09:49] LABS: INR 3.59 (0.9-1.15); Prothrombin Time 33.5 sec (9.3-11.8)
== END | disposition home or self-care (01) ==
LOC: LAB 09:11
PROVIDERS: ATTEND Physician Assistant
DX: D68.62 Lupus anticoagulant syndrome (principal); Z86.711 Personal history of pulmonary embolism
CPT/HCPCS: 36415; 85610

== ENCOUNTER 2024-12-10 16:04 | Outpatient (CLI) | payer OTHER | END 2024-12-10 17:00 | disposition home or self-care (01) | LOC: LAB 16:04 | PROVIDERS: ATTEND Internal Medicine | DX: Z12.11 Encounter for screening for malignant neoplasm of colon (principal) | CPT/HCPCS: 82270 ==

== ENCOUNTER 2024-12-30 08:21 | Outpatient (CLI) | payer OTHER ==
[2024-12-30 09:43] LABS: Cholesterol 206 mg/dL (< 200); HDL Cholesterol 40 mg/dL (40-59); Triglycerides 205 mg/dL (< 150)
[2024-12-30 10:10] LABS: Microalb/Creat Ratio, Urine 3.0
== END 2024-12-30 17:00 | disposition home or self-care (01) ==
LOC: LAB 08:21
PROVIDERS: ATTEND Internal Medicine
DX: E78.5 Hyperlipidemia, unspecified (principal); R73.03 Prediabetes; Z00.00 Encounter for general adult medical examination without abnormal findings
CPT/HCPCS: 36415; 80061; 82043; 82570; 83036